=== PATIENT | male | born 1940 | race Caucasian/White ===

== ENCOUNTER 2016-03-07 13:20 | Emergency (ER) | payer MEDICARE, OTHER ==
[2013-11-16 13:13] VITALS: BMI 25.6
[~2016-03-07 13:20] MED LIST: ACETAMINOPHEN500 M1 PO; BAYER CHEWABLE81 MG PO; FEXOFENADINE H180 MG PO; HYTRIN1 MG PO; LEVAQUIN250 MG PO; NIASPAN500 MG PO; POTASSIUM CITRA5 MEQ PO; PRILOSEC20 MG PO; WELCHOL3.75 GM PO
[2016-03-07 14:57] LABS: BASOPHILS 0.1 % (0.0-2.0); EOSINOPHILS 0 % (0-7); HEMATOCRIT 41.8 % (42.0-54.0); HEMOGLOBIN 13.9 g/dL (13.5-17.5); IMMATURE GRANULOCYTES 0.1 % (0-5); LYMPHOCYTES 12.1 % (15-50); MCH 30.8 pg (26.0-34.0); MCHC 33.3 g/dL (31.0-37.0); MCV 92.7 fL (80.0-100.0); MEAN PLATELET VOLUME 10.4 fL (7.4-10.4); MONOCYTES 2.3 % (2-11); NEUTROPHILS 85.4 % (40-80); PLATELET COUNT 153 10x3/uL (130-400); RBC 4.51 10x6/uL (4.20-6.10); RDW 12.7 % (11.5-14.5)
[2016-03-07 15:09] LABS: ANION GAP 12.7 mmol/L (8-16); BILIRUBIN - TOTAL 0.77 mg/dL (0.2-1.3); CALCIUM 9.8 mg/dL (8.5-10.1); CARBON DIOXIDE 25.9 mmol/L (21.0-32.0); CREATININE - SERUM 2.1 mg/dL (0.6-1.3); POTASSIUM - SERUM 4.6 mmol/L (3.5-5.1); PROTEIN - SERUM 9.1 g/dL (6.4-8.2)
[2016-03-07 15:13] LABS: APPEARANCE CLEAR (CLEAR); BILIRUBIN NEGATIVE (NEGATIVE); COLOR YELLOW (YELLOW); GLUCOSE NEGATIVE (NEGATIVE); KETONE NEGATIVE (NEGATIVE); LEUKOCYTE ESTERASE NEGATIVE (NEGATIVE); NITRITE NEGATIVE (NEGATIVE); PROTEIN TRACE mg/dL (NEGATIVE); UROBILINOGEN NORMAL (NORMAL)
[2016-03-07 15:19] LABS: BACTERIA FEW /hpf (NONE SEEN); EPITHELIAL CELLS 0-5 /hpf (0-5); WHITE CELLS - URINE 0-5 /hpf (0-5)
== END 2016-03-07 18:50 | disposition home or self-care (01) ==
LOC: D.ER 13:20
PROVIDERS: Emergency Medicine
DX: K52.9 Noninfective gastroenteritis and colitis, unspecified (principal); K21.9 Gastro-esophageal reflux disease without esophagitis; N28.9 Disorder of kidney and ureter, unspecified; F17.200 Nicotine dependence, unspecified, uncomplicated

== ENCOUNTER 2016-03-10 16:58 | Inpatient (IN) | payer MEDICARE, OTHER ==
[~2016-03-10] VITALS: Ht 177.8 cm; Wt 78.6 kg
--- NOTE | 2016-03-10 17:38 | NUR ---
ARRIVE TO ROOM VIA WHEELCHAIR FROM DOCTOR'S OFFICE ACCOMPANIED BY HOSPITAL STAFF AND SPOUSE. ALERT AND ORIENTED WITH SOME CONFUSION. MAX ASSIST TO BED FROM WHEELCHAIR. SHAKING AND COLD. TEMP 101.6. DENIES SOB. DENIES PAIN. CONTINUE ADMISSION PROCESS. SCDs ON. BED LOCKED AND LOW. CALL LIGHT IN REACH. TWO SIDERAILS UP.
[2016-03-10 17:42] VITALS: BP 141/70
[2016-03-10 18:30] VITALS: BP 141/70; BMI 25.6
--- NOTE | 2016-03-10 18:41 | NUR ---
UA COLLECTED TAKEN TO LAB. IV SITED LT FA SL. BED LOCKED AND LOW. CALL LIGHT IN REACH. TWO SIDERAILS UP. BED ALARM ON.
[2016-03-10 18:45] LABS: BASOPHILS 0.1 % (0.0-2.0); EOSINOPHILS 0 % (0-7); HEMATOCRIT 40.1 % (42.0-54.0); HEMOGLOBIN 13.5 g/dL (13.5-17.5); IMMATURE GRANULOCYTES 0.1 % (0-5); LYMPHOCYTES 13.2 % (15-50); MCH 31.2 pg (26.0-34.0); MCHC 33.7 g/dL (31.0-37.0); MCV 92.6 fL (80.0-100.0); MEAN PLATELET VOLUME 10.9 fL (7.4-10.4); MONOCYTES 10.1 % (2-11); NEUTROPHILS 76.5 % (40-80); PLATELET COUNT 142 10x3/uL (130-400); RBC 4.33 10x6/uL (4.20-6.10); RDW 12.5 % (11.5-14.5); WBC 6.9 10x3/uL (4.8-10.8)
[2016-03-10 19:08] LABS: ALBUMIN 3.7 g/dL (3.4-5.0); BILIRUBIN - TOTAL 1.07 mg/dL (0.2-1.3); CARBON DIOXIDE 26.2 mmol/L (21.0-32.0); CREATININE - SERUM 1.8 mg/dL (0.6-1.3); POTASSIUM - SERUM 4.2 mmol/L (3.5-5.1); PROTEIN - SERUM 8.2 g/dL (6.4-8.2)
--- NOTE | 2016-03-10 19:15 | NUR ---
RECEIVED REPORT, LFA-NS @ 60, REFUSING SCD AT THIS TIME, BED IS LOW, SRX2, CALL LIGHT IN REACH, FAMILY AT BEDSIDE, WILL CONTINUE TO MONITOR
[2016-03-10 19:43] LABS: APPEARANCE CLEAR (CLEAR); BILIRUBIN NEGATIVE (NEGATIVE); COLOR YELLOW (YELLOW); GLUCOSE NEGATIVE (NEGATIVE); KETONE NEGATIVE (NEGATIVE); LEUKOCYTE ESTERASE NEGATIVE (NEGATIVE); NITRITE NEGATIVE (NEGATIVE); PROTEIN NEGATIVE (NEGATIVE); SPECIFIC GRAVITY 1.015 (1.005-1.020); UROBILINOGEN NORMAL (NORMAL)
[2016-03-10 20:26] VITALS: BP 153/77
[2016-03-11 00:38] VITALS: BP 136/77
--- NOTE | 2016-03-11 03:53 | NUR ---
GOLD CHARMER AT BEDSIDE TO OBTAIN VITALS, CALL LIGHT IN REACH. WILL CONTINUE WITH PLAN OF CARE.
[2016-03-11 04:40] VITALS: BP 119/57
--- NOTE | 2016-03-11 05:02 | NUR ---
SLEEPING, CALL LIGHT IN REACH, BED IS LOW, AT BEDSIDE
[2016-03-11 06:40] LABS: ANION GAP 12.8 mmol/L (8-16); CALCIUM 8.8 mg/dL (8.5-10.1); CARBON DIOXIDE 24.2 mmol/L (21.0-32.0); CREATININE - SERUM 1.7 mg/dL (0.6-1.3)
--- NOTE | 2016-03-11 07:20 | NUR ---
RECIEVED REPORT ON PATIENT, PATIENT IS ALERT AND ORIENTED AT THIS TIME. PATIENT HAS A L FA IV WITH NS INFUSING AT 60ML/HR. PATIENT IS ON ROOM AIR AT THIS TIME WITH NAD NOTED. CHEST RISES AND FALLS EQUALLY. PATIENT DENIES ANY NEEDS OR PAIN AT THIS TIME. WILL CONT TO MONITOR. CPOC
[2016-03-11 08:00] VITALS: BP 141/66
--- NOTE | 2016-03-11 10:00 | NUR ---
ASSESSMENT DONE. PATIENT DENIES ANY NEEDS OR COMPLAINTS. AT BEDSIDE. CPOC
[2016-03-11 12:00] VITALS: BP 130/63
[2016-03-11 12:55] VITALS: Ht 177.8 cm; Wt 78.6 kg
--- NOTE | 2016-03-11 13:30 | NUR ---
PATIENT WORKING WITH PHYSICAL THERAPY. CPOC
[2016-03-11 16:00] VITALS: BP 138/68
--- NOTE | 2016-03-11 16:00 | NUR ---
PATIENT SLEEPING AT THIS TIME, NAD NOTED. CHEST RISES AND FALLS EQUALLY. PATIENT AT BEDSIDE. DENIES ANY NEEDS. CPOC
--- NOTE | 2016-03-11 16:23 | EC ---
PATIENT:JOSE GATICA DATE OF SERVICE: 03/10/16 SEX: M MEDICAL RECORD: [id number] DATE OF : 42 LOCATION:D.M2 D.210 AGE OF PATIENT: 75 ADMISSION DATE: 03/10/16 REFERRING PHYSICIAN: INTERPRETING PHYSICIAN: ANAM LAROSE MD ECHOCARDIOGRAM REPORT ECHO CHARGES 4 ECHO COMPLETE CLINICAL DIAGNOSIS: DYSPNEA/FEVER ECHOCARDIOGRAPHIC MEASUREMENTS (adult normal given) AC root (d.<3.7cm) 3.9 LV Septum d (<1.2 cm> 1.3 Valve Excursion 2.0 LV Septum (systole) 1.4 Left Atria (s.<4.0cm> 3.9 LVPW d(<1.2cm) 1.3 RV (d.<2.3cm) 4.1 LVPW (sytole) 2.1 LV diastole(<5.6CM) 4.9 MV E-F(>70mm/sec) LV systole 3.9 LVOT Diameter 1.7 MV exc.(>10mm) Est.ejection fraction (50-75%) Pericardial Effusion N DOPPLER: LVIT A 59.0 E 66.0 LA RVSP 29 LVOT 65 AOP1/2T Asc. Ao 113 RVOT 66 RA PA 67 AV Gradient Peak 5.09 AV Mean 2.5 AV Area 1.5 MV Gradient Peak 1.77 MV Mean 0.70 MV Area COMMENTS: Custom Clothier: Wilmer [facility] Director:Wilmer Hebert TAPE# PACS DATE OF SERVICE: 03/11/2016 Echocardiogram FINDINGS: 1. Left ventricular chamber size is within normal limits. Left ventricular systolic function is normal. Overall ejection fraction estimated at 55%. 2. Left atrium is upper limits of normal at 3.9 cm. Right atrium and right ventricular chamber sizes are as well upper limits of normal. 3. Valvular structures have normal structure and motion. ECHOCARDIOGRAM REPORT [id number] JOSE GATICA 4. Doppler interrogation reveals mild mitral regurgitation, mild tricuspid regurgitation, no other valvular insufficiency or stenosis. Pulmonary systolic pressure is normal estimated at 29 mmHg. 5. No evidence of pericardial effusion or left ventricular thrombus. TRANSINT:[id number] Voice Confirmation ID: [id number] DOCUMENT ID: [id number] ANAM LAROSE MD at 1623 CC: PRISCILA HECK MD [id number] DICTATION DATE: 03/11/16 1317 BIOTECHNICIAN: 03/11/16 1341 ADM IN [facility] [address] [id number]
--- NOTE | 2016-03-11 17:59 | NUR ---
PATIENT EATING DINNER AT THIS TIME, HAS ATE 10% AND DENIES THE REST, LEFT TRAY FOR PATIENT TO EAT ON LATER. DENIES ANY OTHER NEEDS. CPOC
--- NOTE | 2016-03-11 19:20 | NUR ---
RECEIVED REPORT, [id number], FAMILY AT BEDSIDE, DENIES ANY NEEDS AT THIS TIME, CALL LIGHT IN REACH, BED IS LOW, SRX2
[2016-03-11 19:51] VITALS: BP 124/64
[2016-03-12] VITALS: BP 108/61
--- NOTE | 2016-03-12 03:16 | NUR ---
SLEEPING, CALL LIGHT IN REACH, AT BEDSIDE,
[2016-03-12 05:21] LABS: BASOPHILS 0.2 % (0.0-2.0); EOSINOPHILS 0.4 % (0-7); HEMATOCRIT 36.9 % (42.0-54.0); HEMOGLOBIN 12.7 g/dL (13.5-17.5); IMMATURE GRANULOCYTES 0.2 % (0-5); LYMPHOCYTES 24.5 % (15-50); MCH 30.9 pg (26.0-34.0); MCHC 34.4 g/dL (31.0-37.0); MEAN PLATELET VOLUME 10.3 fL (7.4-10.4); MONOCYTES 15.5 % (2-11); NEUTROPHILS 59.2 % (40-80); PLATELET COUNT 120 10x3/uL (130-400); RBC 4.11 10x6/uL (4.20-6.10); RDW 12.5 % (11.5-14.5); WBC 5.4 10x3/uL (4.8-10.8)
[2016-03-12 05:24] LABS: MCV 89.8 fL (80.0-100.0)
--- NOTE | 2016-03-12 05:30 | NUR ---
CALL LIGHT IN REACH. WILL CONTINUE WITH PLAN OF CARE.
[2016-03-12 05:31] LABS: ANION GAP 12.3 mmol/L (8-16); CALCIUM 8.8 mg/dL (8.5-10.1); CARBON DIOXIDE 23.6 mmol/L (21.0-32.0); CREATININE - SERUM 1.8 mg/dL (0.6-1.3); POTASSIUM - SERUM 3.9 mmol/L (3.5-5.1)
--- NOTE | 2016-03-12 07:54 | NUR ---
ASSESSMENT COMPLETED. PT IS ALERT, NO CONFUSION AT PRESENT TIME. FAMILY AT BED SIDE. IV TO LEFT FA. PT IS BILL [employer] [place]. WILL MONITOR
[2016-03-12 09:01] VITALS: BP 125/81
--- NOTE | 2016-03-12 10:56 | NUR ---
resting QUIETLY. VISITING WITH FAMILY. WILL CONTINUE TO MONITOR
--- NOTE | 2016-03-12 11:49 | NUR ---
Is the patient Alert and Oriented? Yes 0 * How many steps to enter\exit or inside your home? 3 0 * PCP DR. HECK 0 * Pharmacy [facility] 0 * Preadmission Environment Home with Family 0 * ADLs Independent 0 * Equipment None 0 * List name and contact numbers for known caregivers / representatives who currently or will assist patient after discharge: SPOUSE: RITCHIE GATICA [phone] 0 * Community resources currently utilized None 0 * Additional services required to return to the preadmission environment? No 0 * Can the patient safely return to the preadmission environment? Yes 0 * Has this patient been hospitalized within the prior 30 days at any hospital? No SPOKE WITH PATIENT AND HIS AT BEDSIDE. HE LIVES AT HOME WITH HIS AND IS INDEPENDENT IN HIS ADL'S. SHE WILL BE AVAILABLE TO DRIVE HIM HOME AT DISCHARE. PATIENT'S PCP IS DR. HECK. HE GETS HIS MEDS FROM [facility]. PATIENT DENIES EVER HAVING HOME HEALTH. HE DOES NOT USE ANY EQUIPMENT. THERE ARE 3 STEPS TO ENTER HIS HOME. PATIENT AND STATE PATIENT PLANS TO RETURN HOME AND DENY ANY DISCHARGE NEEDS.
[2016-03-12 13:09] VITALS: BP 122/65
--- NOTE | 2016-03-12 16:06 | NUR ---
AMBULATING IN [address]. GAIT STEADY. WILL MONITOR
[2016-03-12 16:43] VITALS: BP 139/70
--- NOTE | 2016-03-12 19:15 | NUR ---
RECEIVED REPORT, KLAUDIA DIXON-MAGAN@ 60, AT BEDSIDE, CALL LIGHT IN REACH, BED IS LOW, DENIES ANY NEEDS
[2016-03-12 21:00] VITALS: BP 124/71
[2016-03-13 00:42] VITALS: BP 114/58
--- NOTE | 2016-03-13 04:45 | NUR ---
UP TO RESTROOM, DENIES ANY NEEDS
--- NOTE | 2016-03-13 04:58 | NUR ---
PT RESTING WITHOUT C/O OR DISTRESS NOTED. CALL LIGHT WITHIN REACH. WILL CONT TO MONITOR.
[2016-03-13 06:56] LABS: BASOPHILS 0.3 % (0.0-2.0); EOSINOPHILS 0.9 % (0-7); HEMOGLOBIN 13.2 g/dL (13.5-17.5); IMMATURE GRANULOCYTES 0.2 % (0-5); LYMPHOCYTES 32.4 % (15-50); MCH 30.7 pg (26.0-34.0); MCHC 33.8 g/dL (31.0-37.0); MCV 90.7 fL (80.0-100.0); MEAN PLATELET VOLUME 10.5 fL (7.4-10.4); MONOCYTES 14.3 % (2-11); NEUTROPHILS 51.9 % (40-80); RDW 12.6 % (11.5-14.5); WBC 5.9 10x3/uL (4.8-10.8)
[2016-03-13 06:58] LABS: PLATELET COUNT 153 10x3/uL (130-400)
[2016-03-13 07:12] LABS: CALCIUM 8.2 mg/dL (8.5-10.1); CARBON DIOXIDE 23.7 mmol/L (21.0-32.0); CREATININE - SERUM 1.9 mg/dL (0.6-1.3); POTASSIUM - SERUM 3.7 mmol/L (3.5-5.1)
[2016-03-13 07:18] VITALS: BP 114/61
[2016-03-13 07:26] VITALS: BP 114/61
--- NOTE | 2016-03-13 07:45 | NUR ---
PT AWAKE AND ALERT AT BEDSIDE NO ACUTE DISTRESS NOTED VOICES ALL NEEDS TO STAFF CALL LIGHT IN REACH SIDE RAILS UP X 2. UP AD TJ IN ROOM AND AMBULATES WITH A WEAK BUT STEADY GAIT. DENEIS NEEDS AT THIS TIME WILL CONTINUE TO MONITOR.
--- NOTE | 2016-03-13 10:00 | NUR ---
PT RESTING QUIETLY IN ROOM TOOK ALL AM MEDS WITH NO DIFFICULTY NOTED MOBILE PER AMBULATION IN ROM WITH NO ASSIST NEEDED.
[2016-03-13] MEDS ORDERED: PHENAZOPYRIDIN100 MG PO ×2 (11:23→12:40)
[2016-03-13] MEDS ORDERED: VIBRAMYCIN 100100 MG PO ×2 (11:24→12:40)
[2016-03-13] MEDS ORDERED: LEVAQUIN500 MG PO ×2 (11:25→12:40)
[2016-03-13 11:30] VITALS: BP 122/62
--- NOTE | 2016-03-13 13:03 | NUR ---
PT DISCHARGED AT THIS TIME MEDS CALLED TO [facility] ON [address] SPOKE WITH RONNIE PHARMICIST. IV D/C TO LEFT AC TIP IN TACT NO BLEEDING NOTED TRANSPORTED VIA WHEELCHAIR TO [facility] FOR DISCHARGE HOME WITH AND SON
[2016-03-16 12:17] LABS: RMSF IGM 0.27 index (0.00-0.89)
[2016-03-16 14:20] LABS: EHRLICHIA CHAFF IGG Negative (Neg:<1:64); EHRLICHIA CHAFF IGM Negative (Neg:<1:20); HGE IGG TITER Negative (Neg:<1:64); HGE IGM TITER Negative (Neg:<1:20)
--- NOTE | 2016-03-21 15:55 | HP ---
PATIENT: JOSE GATICA MEDICAL RECORD: [id number] ACCOUNT: [id number] LOCATION:[address] : 42 ADMISSION DATE: 03/10/16 HISTORY AND PHYSICAL EXAMINATION HISTORY OF PRESENT ILLNESS: A 75-year-old white male presented to the clinic upon day of admission with complaint of not feeling well and headache. The patient was in his usual state of health; whenever approximately 4-5 days ago, he started having a type of symptoms that is like gastric upset and stomach abdominal weakness. The patient had several episodes of emesis. He was taken to the local ER, evaluation was done and the patient was found to have gastroenteritis, was given a prescription of Zofran and was discharged home. Patient since that time has had increased in loss of balance. He has had grimacing and gritting of his teeth, stating that he just does not feel well. He has had multiple rigors. No documented temperature. The patient has had decreased p.o. intake, increasing urine output. He has had very little urine stream over the last 24 hours, complained that his bladder stings when he urinates and a burning sensation. Patient is unable to give a urine sample in the clinic today. PAST MEDICAL HISTORY: Significant for BPH, dementia, hyperlipidemia, GERD, renal stones, chronic renal insufficiency, goiter, chronic pharyngitis, dysphonia, hearing loss and osteoarthritis. The patient is followed by filtering machine tender, Dr. Monroe. ALLERGIES: LOPID. PAST SURGICAL HISTORY: The patient has had a cholecystectomy and has also had a tonsillar stone removed out of his throat in the past. SOCIAL HISTORY: Patient does not smoke and does not drink alcohol. MEDICATIONS: Include terazosin 2 mg, allopurinol 100 mg, Farwell p.r.n., Colace 100 mg, Nexium 20 mg, Leti 180 mg, niacin and multivitamins. REVIEW OF SYSTEMS: As above. PHYSICAL EXAMINATION: VITAL SIGNS: As above. GENERAL: He is a well-developed, well-nourished elderly, ill-appearing 75-year-old white male in a wheelchair with a difficult balance. He is gritting his teeth, stating that it is secondary to his chattering of his teeth. HEENT: His pupils are sluggish, but do react to light. Extraocular movements are intact. NECK: No nuchal rigidity is noted. LUNGS: Have shallow respirations, but clear bilaterally. HEART: Regular rate and rhythm, no significant tachycardia. ABDOMEN: Soft, nontender, positive bowel sounds. No hepatosplenomegaly. No masses, no evidence of rashes. EXTREMITIES: He has cool extremities on his hands, has palpable radial pulses bilaterally. NEUROLOGIC: Able to move all 4 extremities. LABORATORY DATA: CBC was obtained in the clinic. HISTORY AND PHYSICAL [id number] JOSE GATICA ASSESSMENT: 1. Early sepsis. 2. Prostatitis versus urinary tract infection. 3. Chronic renal insufficiency. 4. Dementia. 5. Falls and loss of balance. 6. Possible metabolic encephalopathy. PLAN: The patient will be admitted to the hospital for hydration for the next [address] of the head to be obtained. We will start him on Rocephin IM times 1 in the clinic and then start him on Levaquin 500 mg IV. We will check laboratory appropriately. We will write admission orders and patient will be admitted to the hospital. TRANSINT:[id number] Voice Confirmation ID: [id number] DOCUMENT ID: [id number] PRISCILA HECK MD at 1555 CC: [id number] DICTATION DATE: 03/10/162037 FILM DEVELOPER: 03/10/16 2259 DIS IN 03/13/[id number] [place] [address]
== END 2016-03-13 13:04 | disposition home or self-care (01) | DRG 871 ==
LOC: D.M2 16:58
PROVIDERS: Family Medicine Adult Medicine; Student in an Organized Health Care Education/Training Program; ADMIT Family Medicine
DX: A41.9 Sepsis, unspecified organism (principal); G93.41 Metabolic encephalopathy; N41.0 Acute prostatitis; E87.1 Hypo-osmolality and hyponatremia; N40.0 Benign prostatic hyperplasia without lower urinary tract symptoms; F03.90 Unspecified dementia, unspecified severity, without behavioral disturbance, psychotic disturbance, mood disturbance, and anxiety; E78.5 Hyperlipidemia, unspecified; K21.9 Gastro-esophageal reflux disease without esophagitis; N18.9 Chronic kidney disease, unspecified; R51 Headache; M19.90 Unspecified osteoarthritis, unspecified site; H91.90 Unspecified hearing loss, unspecified ear; Z91.81 History of falling

== ENCOUNTER 2016-03-19 10:27 | Inpatient (IN) | payer MEDICARE, OTHER ==
[~2016-03-19] VITALS: Ht 177.8 cm; Wt 77.6 kg
[~2016-03-19 10:27] MED LIST changes: +LEVAQUIN500 MG PO; +PHENAZOPYRIDIN100 MG PO; +VIBRAMYCIN 100100 MG PO
[2016-03-19 11:00] LABS: BASOPHILS 0.1 % (0.0-2.0); EOSINOPHILS 0.9 % (0-7); HEMATOCRIT 42.4 % (42.0-54.0); IMMATURE GRANULOCYTES 0.1 % (0-5); LYMPHOCYTES 22.7 % (15-50); MCH 30.5 pg (26.0-34.0); MCV 92.4 fL (80.0-100.0); MEAN PLATELET VOLUME 10.2 fL (7.4-10.4); MONOCYTES 9.6 % (2-11); NEUTROPHILS 66.6 % (40-80); RBC 4.59 10x6/uL (4.20-6.10); RDW 12.5 % (11.5-14.5); WBC 6.8 10x3/uL (4.8-10.8)
[2016-03-19 11:01] LABS: PLATELET COUNT 197 10x3/uL (130-400)
[2016-03-19 11:15] LABS: APTT 26.9 SECONDS (22.8-39.4); INR 1.09 (0.85-1.17)
[2016-03-19 11:24] LABS: ALBUMIN 3.6 g/dL (3.4-5.0); ALKALINE PHOSPHATASE 94 U/L (46-116); ALT (SGPT) 35 U/L (10-68); CALC OSMOLALITY 281 mosm/kg (275-300); CALCIUM 9.9 mg/dL (8.5-10.1); CARBON DIOXIDE 26.6 mmol/L (21.0-32.0); CHLORIDE - SERUM 102 mmol/L (98-107); CREATININE - SERUM 2.3 mg/dL (0.6-1.3); GLUCOSE 105 mg/dL (74-106); POTASSIUM - SERUM 4.6 mmol/L (3.5-5.1); PROTEIN - SERUM 8.7 g/dL (6.4-8.2); SODIUM 138 mmol/L (136-145); UREA NITROGEN 28 mg/dL (7-18); eGFR NON AFRICAN AMERICAN 30 mL/min (90-120)
[2016-03-19 11:27] LABS: CREATINE KINASE 70 UL (21-232)
[2016-03-19 11:30] LABS: TROPONIN-I < 0.017 ng/mL (0.000-0.060)
[2016-03-19 11:41] LABS: APPEARANCE CLEAR (CLEAR); COLOR ORANGE (YELLOW); SPECIFIC GRAVITY 1.015 (1.005-1.020)
[2016-03-19 11:43] LABS: BACTERIA FEW /hpf (NONE SEEN); EPITHELIAL CELLS 0-5 /hpf (0-5); HYALINE CAST 0-5 /lpf (NONE SEEN); MUCUS <1+ /lpf (NONE SEEN); RED CELLS - URINE 0-5 /hpf (0-5); WHITE CELLS - URINE 0-5 /hpf (0-5)
[2016-03-19 18:06] LABS: APPEARANCE - CSF CLEAR; RBC - CSF 10 cmm (0-0)
[2016-03-19 18:09] LABS: GLUCOSE - CSF 63 MG/DL (40-75); PROTEIN - CSF 59 MG/DL (12-60)
[2016-03-19 20:00] VITALS: BP 129/70
[2016-03-20] VITALS (8 sets, daily range): BP systolic 104–129; BP diastolic 58–71; Ht 177.8 cm; Wt 77.6 kg
[2016-03-20] MEDS ORDERED: ZYLOPRIM100 MG PO (02:21)
[2016-03-20] MEDS ORDERED: NORCO 7.5/325 T1 TA1 PO (02:23)
[2016-03-20] MEDS ORDERED: COLACE100 MG PO (02:23)
[2016-03-20] MEDS ORDERED: NEXIUM20 MG PO (02:24)
[2016-03-20] MEDS ORDERED: MULTIPLE VITAMI1 TA1 PO (02:25)
[2016-03-20 05:40] LABS: BASOPHILS 0.2 % (0.0-2.0); EOSINOPHILS 1.1 % (0-7); HEMOGLOBIN 12.3 g/dL (13.5-17.5); IMMATURE GRANULOCYTES 0.2 % (0-5); LYMPHOCYTES 32.2 % (15-50); MCH 29.9 pg (26.0-34.0); MCHC 32.4 g/dL (31.0-37.0); MCV 92.5 fL (80.0-100.0); MEAN PLATELET VOLUME 9.9 fL (7.4-10.4); MONOCYTES 9.2 % (2-11); NEUTROPHILS 57.1 % (40-80); PLATELET COUNT 192 10x3/uL (130-400); RBC 4.11 10x6/uL (4.20-6.10); RDW 12.5 % (11.5-14.5); WBC 6.6 10x3/uL (4.8-10.8)
[2016-03-20 05:51] LABS: ANION GAP 9.5 mmol/L (8-16); CALCIUM 8.8 mg/dL (8.5-10.1); CARBON DIOXIDE 29.9 mmol/L (21.0-32.0); CREATININE - SERUM 2.1 mg/dL (0.6-1.3); POTASSIUM - SERUM 4.4 mmol/L (3.5-5.1)
--- NOTE | 2016-03-20 07:00 | NUR ---
REPORT RECIEVED ASSUMED CARE. PATIENT IN BED WITH IV INTACT. NO COMPLAINTS. CALL LIGHT WITHIN REACH. REFUSES BSCDS. FAMILY AT BEDSIDE.
[2016-03-20] MEDS ORDERED: BIOFLEX TABLET1 EACH PO (07:51)
--- NOTE | 2016-03-20 10:30 | NUR ---
PATIENT UP AMBULATING WITH FAMILY AT THIS TIME. IV INTACT. NO PROBLEMS CALL LIGHT WITHIN REACH.
--- NOTE | 2016-03-20 17:25 | NUR ---
PATIENT UP AMBULATING WITH FAMILY AT THIS TIME.
--- NOTE | 2016-03-20 18:45 | NUR ---
PATIENT SITTING UP IN BED WITH NO COMPLAINTS AT THIS TIME. IV INTACT. CALL LIGHT WITHIN REACH.
[2016-03-21 04:00] VITALS: BP 105/63
[2016-03-21 05:53] LABS: BASOPHILS 0.1 % (0.0-2.0); EOSINOPHILS 2.1 % (0-7); HEMATOCRIT 40.1 % (42.0-54.0); HEMOGLOBIN 12.9 g/dL (13.5-17.5); IMMATURE GRANULOCYTES 0.1 % (0-5); LYMPHOCYTES 26.7 % (15-50); MCH 29.8 pg (26.0-34.0); MCHC 32.2 g/dL (31.0-37.0); MCV 92.6 fL (80.0-100.0); MEAN PLATELET VOLUME 10.5 fL (7.4-10.4); MONOCYTES 8.4 % (2-11); NEUTROPHILS 62.6 % (40-80); PLATELET COUNT 206 10x3/uL (130-400); RBC 4.33 10x6/uL (4.20-6.10); RDW 12.6 % (11.5-14.5); WBC 7.2 10x3/uL (4.8-10.8)
[2016-03-21 06:13] LABS: ANION GAP 12.9 mmol/L (8-16); CALCIUM 9.2 mg/dL (8.5-10.1); CARBON DIOXIDE 27.8 mmol/L (21.0-32.0); CREATININE - SERUM 2.4 mg/dL (0.6-1.3); POTASSIUM - SERUM 4.7 mmol/L (3.5-5.1)
--- NOTE | 2016-03-21 07:00 | NUR ---
REPORT RECIEVED ASSUMED CARE. PATIENT IN BED WITH IV INTACT. NO COMPLAINTS. CALL LIGHTW ITHIN REACH.
[2016-03-21 09:04] VITALS: BP 109/64
[2016-03-21 13:01] VITALS: BP 103/69
--- NOTE | 2016-03-21 16:30 | NUR ---
PATIENT AMBULATED AROUND HALLS X 2 WITH FAMILY.
[2016-03-21 18:10] VITALS: BP 111/63
--- NOTE | 2016-03-21 18:18 | NUR ---
PATIENT SITTING UP IN BED WITH FAMILY AT BEDSIDE. IV INTACT AND INFUSING ANTIBIOTIC. NO COMPLAINTS. REFUSES BSCDS. CALL LIGHT WITHIN REACH.
--- NOTE | 2016-03-21 20:20 | NUR ---
PATIENT AMBULATING IN HALLS WITH . NO SIGNS OF DISTRESS NOTED. DENIES ANY NEEDS AT THIS TIME.
[2016-03-21 21:00] VITALS: BP 123/69
[2016-03-22 02:00] VITALS: BP 104/57
--- NOTE | 2016-03-22 02:30 | NUR ---
PT IN BED WITH NO NEEDS. LEFT WRIST PATENT AND SALINE LOC. TELEMETRY ON. REFUSING SCD'S AT THIS TIME. SIDE RAILS ARE UP X 2. BED IS LOW. CALL LIGHT IS IN REACH.
[2016-03-22 04:57] LABS: BASOPHILS 0.2 % (0.0-2.0); EOSINOPHILS 2.4 % (0-7); HEMATOCRIT 37.9 % (42.0-54.0); HEMOGLOBIN 12.5 g/dL (13.5-17.5); IMMATURE GRANULOCYTES 0.2 % (0-5); LYMPHOCYTES 25.8 % (15-50); MCH 30.3 pg (26.0-34.0); MCV 91.8 fL (80.0-100.0); MEAN PLATELET VOLUME 9.9 fL (7.4-10.4); MONOCYTES 6.7 % (2-11); NEUTROPHILS 64.7 % (40-80); PLATELET COUNT 173 10x3/uL (130-400); RBC 4.13 10x6/uL (4.20-6.10); RDW 12.8 % (11.5-14.5); WBC 6.3 10x3/uL (4.8-10.8)
[2016-03-22 05:24] LABS: CALCIUM 8.9 mg/dL (8.5-10.1); CARBON DIOXIDE 26.2 mmol/L (21.0-32.0); POTASSIUM - SERUM 4.2 mmol/L (3.5-5.1)
[2016-03-22 08:30] VITALS: BP 92/61
--- NOTE | 2016-03-22 10:30 | NUR ---
Rehab Prescreening Consult recieved and the chart has been reviewed. He has ambulated 500 ft with PT and does not have that need. He still has a BSSE ordered and pending today. Rehab would like to see the results of that and determine the need for ST and OT. Rehab will follow. Falguni Ritchie RN Clinical Liaison, Rehab
--- NOTE | 2016-03-22 10:39 | NUR ---
Patient Name: JOSE GATICA Admission Status: ER Accout number: [id number] Admission Date: 03-19-2016 : 1940 Admission Diagnosis: Attending: KING Current LOS: 3 Anticipated DC Date: 03-24-2016 Planned Disposition: Home Primary Insurance: MEDICARE A & B Discharge Planning Comments: CM MET WITH PATIENT REGARDING D/C NEEDS AND PLANS. PATIENT STATED HIS (RITCHIE) WILL DRIVE HIM HOME AT DISCHARGE. PATIENT STATED THERE ARE 3 STEPS W/RAILS TO ENTER HOME AND 1 FLIGHT W/RAILS INSIDE (HE DOES NOT USE THES). PATIENTS PCP IS DR. HECK AND PHARMACY IS [facility]. PATIENT STATED HE DOES NOT NEED HOME HEALTH AT THIS TIME. PATIENT STATED HIS HELPS HIM AT HOME. CM WILL CONTINUE TO FOLLOW PATIENT WITH D/C NEEDS AND PLANS. PCP DR. HECK [facility]- [phone] RITCHIE () [phone] Spring Layer: Lyric Lobo Is the patient Alert and Oriented? Yes 0 * How many steps to enter\exit or inside your home? 3 RAILS 0 * PCP DR. HECK 0 * Pharmacy [facility] 0 * Preadmission Environment Home with Family 0 * ADLs Independent 0 * Equipment Shower Chair Walker 0 * List name and contact numbers for known caregivers / representatives who currently or will assist patient after discharge: RITCHIE (SPOUSE) [phone] 0 * Community resources currently utilized None 0 * Additional services required to return to the preadmission environment? Yes 0 * Can the patient safely return to the preadmission environment? Yes 0 * Has this patient been hospitalized within the prior 30 days at any hospital? Yes 0 Grand Total: 0
--- NOTE | 2016-03-22 12:10 | NUR ---
NUTRITION MONITORING & EVAL CHART REVIEWED. PT TOLERATING REG DIET, 100% INTAKE BREAKFAST. SPEECH THERAPY RESULTS NOTED. RD FOLLOWING
[2016-03-22 12:14] VITALS: BP 102/70
[2016-03-22] MEDS ORDERED: FLOMAX0.4 MG PO (14:36)
[2016-03-22] MEDS ORDERED: PLAVIX75 MG PO (14:36)
[2016-03-22] MEDS ORDERED: ROCEPHIN 1 GM/D51 G1 IV (14:36)
[2016-03-22] MEDS ORDERED: ASPIRIN325 MG PO (14:36)
[2016-03-22] MEDS ORDERED: LISINOPRIL5 MG PO (14:36)
[2016-03-22] MEDS ORDERED: PEPCID20 MG PO (14:37)
[2016-03-22] MEDS ORDERED: FLORAJEN3 CAPS460 MG PO (14:37)
[2016-03-22] MEDS ORDERED: PRAVACHOL20 MG PO (15:13)
[2016-03-22 16:12] LABS: CHOL - HDL RATIO 4.3 ratio (2.3-4.9); LDL-HDL RATIO 2.3 ratio (1.5-3.5)
[2016-03-22 16:54] VITALS: BP 110/62
--- NOTE | 2016-03-22 18:00 | NUR ---
REPORT CALLED TO [facility] ON REHAB. WILL TRANSFER TO REHAB PER WHEELCHAIR.
[2016-03-24 20:08] LABS: HSV 1 DNA (PCR) Negative (Negative); HSV 2 DNA (PCR) Negative (Negative)
== END 2016-03-22 18:23 | DRG 64 ==
LOC: D.ER 10:27 → D.MS 16:08
PROVIDERS: Emergency Medicine; Family Medicine; ADMIT Family Medicine
PROC: 009U3ZZ Drainage of Spinal Canal, Percutaneous Approach (ICD-10-PCS; principal; 2016-03-19)
DX: I63.9 Cerebral infarction, unspecified (principal); G93.40 Encephalopathy, unspecified; N18.9 Chronic kidney disease, unspecified; F03.90 Unspecified dementia, unspecified severity, without behavioral disturbance, psychotic disturbance, mood disturbance, and anxiety; M54.9 Dorsalgia, unspecified; G89.29 Other chronic pain; E78.5 Hyperlipidemia, unspecified; K21.9 Gastro-esophageal reflux disease without esophagitis; G47.33 Obstructive sleep apnea (adult) (pediatric); R40.2412 Glasgow coma scale score 13-15, at arrival to emergency department

== ENCOUNTER 2016-03-22 19:29 | Inpatient (IN) | payer MEDICARE, OTHER ==
[~2016-03-22] VITALS: Ht 177.8 cm; Wt 77.7 kg
[~2016-03-22 19:29] MED LIST changes: +ASPIRIN325 MG PO; +BIOFLEX TABLET1 EACH PO; +COLACE100 MG PO; +FLOMAX0.4 MG PO; +FLORAJEN3 CAPS460 MG PO; +LISINOPRIL5 MG PO; +MULTIPLE VITAMI1 TA1 PO; +NEXIUM20 MG PO; +NORCO 7.5/325 T1 TA1 PO; +PEPCID20 MG PO; +PLAVIX75 MG PO; +PRAVACHOL20 MG PO; +ROCEPHIN 1 GM/D51 G1 IV; +ZYLOPRIM100 MG PO
--- NOTE | 2016-03-22 19:30 | NUR ---
PT NOTED WALKING DOWN THE MARKS TOWARD THE NURSES STATION. PT VOICED THAT HE WAS VERY ANGRY BECAUSE HE HAD BEEN HERE SINCE 6 OCLOCK, AND NOBODY HAD EVEN BEEN IN THE ROOM TO SEE HIM YET, AND HE DIDNT FEEL HE WAS BEING TAKEN CARE OF PROPERLY. I INFORMED HIM THAT I WAS ON MY WAY DOWN RIGHT NOW, AND WE WENT BACK TO HIS ROOM. I EXPLAINED TO HIM THAT I WAS WAITING ON ADMISSIONS TO GET HIM INTO THE COMPUTER BEFORE I COULD OFFICIALLY ADMIT HIM TO REHAB, BUT THAT I WAS ACTIVELY WORKING ON IT. THIS HELPED HIM SOME, BUT HE WAS TEARING UP HE SPOKE TO ME. I INFORMED HIM THAT I HAD JUST TALKED TO HIS DAUGHTER, WHO INFORMED ME HOW ANGRY SHE WAS WITH US ALSO. HE ASKED ME TO CALL HIS FOR HIM. HIS ROOM PHONE WILL NOT CALL OUT SO I AGREED TO CALL HER FROM THE NURSES STATION AND TRANSFER IT TO HIS ROOM. I CALLED HIS , WHO ALSO INFORMED ME HOW ANGRY SHE WAS THAT HE WAS NOT BEING TAKEN CARE OF, AND THAT SHE WAS PROMISED A PRIVATE ROOM SO SHE COULD STAY WITH HIM, BUT WAS LIED TO ABOUT IT. I APOLOGISED FOR THE LACK OF A PRIVATE ROOM, AND OFFERED TO LET HER STAY IN HIS CURRENT ROOM, WHICH SHE DECLINED STATING HOW UNHAPPY SHE WAS WITH THE CHAIR IN HIS CURRENT ROOM. I OFFERED TO TRANSFER HER TO THE ROOM, BUT SHE STATED SHE HAD A INCOMING CALL, AND WOULD CALL HIM WHEN SHE WAS DONE WITH IT.
--- NOTE | 2016-03-22 20:40 | NUR ---
PT FULLY ADMITTED TO REHAB. PT ORIENTED TO ROOM AND UNIT WITH VERBAL UNDERSTANDING OF ALL VOICED. PT STATED HE DID NOT KNOW WHAT HIS PASSWORD IT, BUT THAT HIS WOULD BE IN FIRST THING IN THE MORNING TO GIVE IT TO US.
--- NOTE | 2016-03-22 21:48 | NUR ---
PT IS RESTING QUIETLY IN BED WITH EYES CLOSED. RESPS ARE EVEN AND UNLABORED. NO ACUTE DISTRESS NOTED.
[2016-03-22 23:02] VITALS: BP 134/82
--- NOTE | 2016-03-22 23:19 | NUR ---
PT. IN BED LYING ON HIS LEFT SIDE WITH EYES CLOSED AND RESP. EVEN. CALL LIGHT IS WITHIN REACH.
--- NOTE | 2016-03-23 01:30 | NUR ---
RESTING QUIETLY IN BED WITH EYES CLOSED. RESPS ARE EVEN AND UNLABORED. NO ACUTE DISTRESS NOTED.
--- NOTE | 2016-03-23 03:53 | NUR ---
PT RESTING IN BED WITH EYES CLOSED.
--- NOTE | 2016-03-23 06:23 | NUR ---
PT RESTIGN IN BED WITH EYES OPEN. ALERT AND ORIENTED X 3. DENIES ACUTE DISCOMFORT THIS AM. TOLERATED AM IV ABX WITHOUT DIFFICULTY. NO REDNESS OR EDEMA NOTED AT THE INSERTION SITE. PT AWAITING THERAPY EVALS THIS AM.
[2016-03-23 06:46] LABS: BASOPHILS 0.2 % (0.0-2.0); EOSINOPHILS 3.7 % (0-7); HEMATOCRIT 38.5 % (42.0-54.0); HEMOGLOBIN 12.5 g/dL (13.5-17.5); LYMPHOCYTES 29.4 % (15-50); MCH 29.9 pg (26.0-34.0); MCHC 32.5 g/dL (31.0-37.0); MCV 92.1 fL (80.0-100.0); MONOCYTES 10.3 % (2-11); NEUTROPHILS 56.4 % (40-80); PLATELET COUNT 167 10x3/uL (130-400); RBC 4.18 10x6/uL (4.20-6.10); RDW 12.9 % (11.5-14.5)
[2016-03-23 06:55] LABS: WBC 4.3 10x3/uL (4.8-10.8)
[2016-03-23 07:18] LABS: ANION GAP 12.4 mmol/L (8-16); CALCIUM 8.6 mg/dL (8.5-10.1); CREATININE - SERUM 1.8 mg/dL (0.6-1.3); POTASSIUM - SERUM 4.4 mmol/L (3.5-5.1)
[2016-03-23 08:36] VITALS: BP 104/54
[2016-03-23 12:45] VITALS: BMI 24.5
--- NOTE | 2016-03-23 12:50 | NUR ---
SITTING IN WHEELCHAIR IN GYM . NO NEEDS VOICED.
--- NOTE | 2016-03-23 13:28 | NUR ---
AMBULATING IN HALLWAY WITH CRISTINA THERAPIST. NO FALLS NOTED.
--- NOTE | 2016-03-23 15:33 | NUR ---
RESTING ON BACK IN BED WITHOUT ANY NEEDS VOICED.
--- NOTE | 2016-03-23 17:12 | NUR ---
SITTING ON SIDE OF THE BED WITHOUT ANY PAIN NOTED.
--- NOTE | 2016-03-23 19:15 | NUR ---
PT. IN BED LYING ON HIS RIGHT SIDE WITH EYES CLOSED AND RESP. EVEN. PT. AWAKENS EASILY FOR ASSESSMENT. PT. HAS NO VOICED NEEDS AT THIS TIME AND HE HAS HIS CALL LIGHT WITHIN REACH.
[2016-03-23 22:22] VITALS: BP 128/57
[2016-03-23 22:58] VITALS: BP 128/57; Ht 177.8 cm; Wt 77.7 kg
--- NOTE | 2016-03-24 02:00 | NUR ---
PT. IN BED WITH HOB FLAT FOR COMFORT. PT. LYING ON HIS LEFT SIDE WITH EYES CLOSED AND RESP. EVEN. CALL LIGHT WITHIN REACH.
--- NOTE | 2016-03-24 06:27 | NUR ---
PT. IN BED WITH HOB FLAT FOR HIS COMFORT WITH EYES CLOSED AND RESP. EVEN. PT. AWAKENED EASILY FOR MORNING MEDICATION. PT. HAS NO VOICED NEEDS AT THIS TIME AND HIS CALL LIGHT IS WITHIN REACH.
[2016-03-24 08:28] VITALS: BP 120/62
--- NOTE | 2016-03-24 09:43 | NUR ---
SITTING ON SIDE OF THE BED. ALERT AND IN THE ROOM. C/O BACK PAIN, PRN MED GIVEN.
--- NOTE | 2016-03-24 13:04 | NUR ---
RESTING IN BED WITHOUT ANY PAIN VOICED.
--- NOTE | 2016-03-24 15:43 | NUR ---
RESTING ON BACK IN BED WITH CALLIGHT IN REACH.
--- NOTE | 2016-03-24 16:44 | NUR ---
CARE TEAM MEETING: PATIENT TENATIVE DISCHARGE DATE IS 04/01/16, BUT PATIENT WOULD LIKE TO DISHCARGE AFTER LAST DOSE OF IV MEDICATION , WHICH WILL BE ON THE . WILL CONTINUE TO FOLLOW WITH PATIENT UNTIL DISCHARGED. PATIENT PCP IS DR. HECK.
--- NOTE | 2016-03-24 17:28 | NUR ---
SITTING ON SIDE OF THE BED WITH FAMILY IN THE ROOM.
--- NOTE | 2016-03-24 20:51 | NUR ---
RESTING IN BED. ALERT ORIENTED CONVERSANT. DENIES NEEDS. PT GOT SELF UP TO RESTROOM DURING MEDICATION ADMINISTRATION. NO DIFFICULTY AMBULATING OBSERVED. STAEDY GAIT NOTED
[2016-03-24 23:00] VITALS: BP 97/45
--- NOTE | 2016-03-25 01:19 | NUR ---
RESTING IN BED EYES CLOSED RESPIRATIONS OBSERVED. EVEN AND UNLABORED.
--- NOTE | 2016-03-25 02:25 | NUR ---
RESTING QUIETLY IN BED, EYES CLOSED.
--- NOTE | 2016-03-25 07:55 | NUR ---
PATIENT ALERT/ORIENT X4. HARD TO UNDERSTAND SPEECH. IV ANTIBIOTIC FINISHED. PATIENT DISCONNECTED FROM IV. CALL LIGHT WITHIN REACH. VOICES NO NEEDS
[2016-03-25 09:33] VITALS: BP 125/67
--- NOTE | 2016-03-25 11:32 | NUR ---
PATIENT WORKING WITH OCCUPATIONAL THERAPIST. PATIENT IN SHOWER. OT SET UP MATERIALS FOR SHOWER. PATIENT ABLE TO WASH SELF.
--- NOTE | 2016-03-25 12:22 | NUR ---
PATIENT SITTING UP IN WHEELCHAIR BY BED TO EAT LUNCH. IN ROOM VISITING.
--- NOTE | 2016-03-25 14:17 | NUR ---
PATIENT ABLE TO WALK FROM BED INTO BATHROOM WITH STANDBY ASST.
--- NOTE | 2016-03-25 16:25 | NUR ---
RESTING QUIETLY.CL IN REACH.DENIES NEEDS.
--- NOTE | 2016-03-25 17:37 | NUR ---
IV ANTIBIOTIC STATED IN LEFT FOREARM PHERIAL LINE.
[2016-03-25 19:00] VITALS: BP 119/66
--- NOTE | 2016-03-25 19:55 | NUR ---
PT REQ AND REC'D PRN PAIN MEDIACTION FOR 5/10 PAIN TO MID LOWER BACK. HS MEDS ALSO GIVEN AT THIS TIME. PT DENIES FURTHUR NEEDS. WCTM. BED LOW. CL IN REACH.
--- NOTE | 2016-03-25 21:55 | NUR ---
PT RESTING, EYES CLOSED. BED LOW. CL IN REACH. WCTM.
--- NOTE | 2016-03-26 04:14 | NUR ---
PT RESTING, EYES CLOSED. BED LOW. CL IN REACH. WCTM.
--- NOTE | 2016-03-26 08:00 | NUR ---
RESTING QUIETLY IN BED. NO S/S DISTRESS. CALL LIGHT IN REACH
[2016-03-26 08:02] LABS: BASOPHILS 0.2 % (0.0-2.0); EOSINOPHILS 3.1 % (0-7); HEMATOCRIT 37.6 % (42.0-54.0); HEMOGLOBIN 12.2 g/dL (13.5-17.5); LYMPHOCYTES 37.6 % (15-50); MCHC 32.4 g/dL (31.0-37.0); MCV 92.4 fL (80.0-100.0); MEAN PLATELET VOLUME 10.2 fL (7.4-10.4); MONOCYTES 10.6 % (2-11); NEUTROPHILS 48.5 % (40-80); PLATELET COUNT 169 10x3/uL (130-400); RBC 4.07 10x6/uL (4.20-6.10); WBC 4.2 10x3/uL (4.8-10.8)
[2016-03-26 08:08] LABS: ANION GAP 12.9 mmol/L (8-16); CALCIUM 8.6 mg/dL (8.5-10.1); CARBON DIOXIDE 25.9 mmol/L (21.0-32.0); CREATININE - SERUM 1.9 mg/dL (0.6-1.3); POTASSIUM - SERUM 4.8 mmol/L (3.5-5.1)
[2016-03-26 10:27] VITALS: BP 130/65
--- NOTE | 2016-03-26 10:42 | NUR ---
Nutrition Follow Up: Chart reviewed. Diet: Regular PO Intake: 58% (3 meal avg) +BM 03/25/16 No new wt to assess Meds: MV Labs noted - BUN, Cr elevated Pt with fair po intake at this time. Will send Ensure with meals. RD following.
--- NOTE | 2016-03-26 11:40 | NUR ---
SITTING UP TALKING TO . DENIES PAIN OR NEEDS. SPEECH MORE CLEAR AND UNDERSTANDABLE.
--- NOTE | 2016-03-26 15:49 | NUR ---
LAYING ON BED WATCHING TV. DENIES NEEDS. GONE HOME FOR HTE NIGHT
[2016-03-26 19:25] VITALS: BP 110/51
--- NOTE | 2016-03-26 19:45 | NUR ---
PT IS RESTING IN HIS ROOM VISITING WITH A FAMILY MEMBER. ALERT AND ORIENTED X 3. DENIES ANY PAIN OR DISCOMFORT. PT STATES HE IS PLANNING FOR DISCHARGE AFTER HIS IV ANTIBIOTICS ARE FINISHED. SALINE LOCK IS PATENT TO [facility]. NO REDNESS OR EDEMA NOTED AT THE INSERTION SITE. SR'S ARE UP X 2 IN BED. CALL LIGHT AND BEDSIDE TABLE ARE WITHIN EASY REACH.
--- NOTE | 2016-03-26 22:00 | NUR ---
PT IS RESTING QUIETLY IN BED WITH EYES CLOSED. RESPS ARE EVEN AND UNLABORED. NO ACUTE DISTRESS NOTED.
--- NOTE | 2016-03-27 00:32 | NUR ---
RESTING IN BED WITH EYES CLOSED.
--- NOTE | 2016-03-27 02:47 | NUR ---
RESTING IN BED WITH EYES CLOSED.
--- NOTE | 2016-03-27 06:11 | NUR ---
PT RESTING IN BED WITH IV ABX INFUSING. NO NEEDS VOICED.
--- NOTE | 2016-03-27 06:26 | NUR ---
pt resting quietly, no s/s of symptoms.
--- NOTE | 2016-03-27 06:27 | NUR ---
no s/s of acute distress.
--- NOTE | 2016-03-27 07:16 | NUR ---
RESTING QUIETLY IN BED. CALL LIGHT IN REACH
--- NOTE | 2016-03-27 13:23 | NUR ---
RESTING IN BED. IN ROOM WITH PT. DENIES NEEDS OR C/O
[2016-03-27 13:25] VITALS: BP 100/60
--- NOTE | 2016-03-27 18:19 | NUR ---
SITTING ON SIDE OF BED. DENIES NEEDS.
--- NOTE | 2016-03-27 19:20 | NUR ---
PT. IN BED LYING ON HIS LEFT SIDE WITH EYES CLOSED AND RESP. EVEN. PT. AWAKENS EASILY AND HIS PAIN MEDICATION ADMIN. 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 ASSESSMENT ALSO COMPLETED. PT. HAS NO VOICED NEEDS AT THIS TIME AND HAS HIS CALL LIGHT WITHIN REACH.
[2016-03-27 21:59] VITALS: BP 120/51
--- NOTE | 2016-03-27 23:40 | NUR ---
PT. IN BED WITH HOB FLAT FOR COMFORT WITH EYES CLOSED AND RESP. EVEN. CALL LIGHT IS WITHIN REACH.
--- NOTE | 2016-03-28 04:52 | NUR ---
PT. IN BED WITH HOB FLAT PER PT. CHOICE. EYES CLOSED AND RESP. EVEN. CALL LIGHT WITHIN REACH.
--- NOTE | 2016-03-28 07:29 | NUR ---
RESTING QUIETLY IN BED. CALL LIGHT IN REACH
[2016-03-28 10:51] VITALS: BP 117/65
--- NOTE | 2016-03-28 12:43 | NUR ---
SITTING ON SIDE OF BED WITH . IS READY TO GO HOME. DR PATEL NOTIFIED OF PT REQUEST TO GO HOME TODAY.
--- NOTE | 2016-03-28 14:00 | NUR ---
DC HOME WITH ALL PERSONAL BELONGINGS. FAMILY IN ROOM WITH PT. IV DC/D. INSTRUCTED PT TO FOLLOW UP WITH PCP.
--- NOTE | 2016-03-29 09:36 | NUR ---
LATE ENTRY: PATIENT DISCHARGES ON WEEKEND. PATIENT INSTRUCTED PER NURSE TO FOLLOW UP WITH PCP.
--- NOTE | 2016-03-29 14:19 | RHP ---
PATIENT: JOSE GATICA MEDICAL RECORD: [id number] ACCOUNT: [id number] LOCATION:[facility]1114 : 42 ADMISSION DATE: 03/22/16 REHABILITATION HISTORY AND PHYSICAL EXAMINATION POST ADMISSION PHYSICIAN EXAMINATION Post Admission Physical Examination and History and Physical DATE OF ADMISSION: 03/22/2016 ADMITTING DIAGNOSES: Acute lacunar infarction and acute encephalopathy and also [place] spotted fever. HISTORY OF PRESENT ILLNESS: The patient is a gentleman who is admitted to the inpatient rehab for cerebrovascular accident, acute lacunar infarction and also acute encephalopathy. He is a patient of Dr. Hernandez, who was recently hospitalized on March 10 and treated for early sepsis and prostatitis. He presented to the hospital, slurred speech, left upper extremity numbness and facial tingling. Symptoms started the day before and then subsided. The next morning, symptoms started again with left upper extremity numbness again slurred speech, began having a headache at night along with indigestion. He had nausea and vomiting on admit, but that resolved. The informed Dr. Hernandez at Dr. Pagan's office called and informed him that he had come back positive for [place] spotted fever. He had stated that he had not been both hot and cold, but recorded No fever since being discharged from the hospital on March 13. The did report that the patient nausea, vomiting, headache on March 07. CT head was done and shows chronic changes from previous study, but nothing acute. He has been admitted and an MRI of the head was found to have acute lacunar infarction. He started by speech therapy and found to have oropharyngeal dysphagia, dysarthric speech. Definitely need inpatient rehab to get back to his prior level of functioning and also to make sure that he is not aspirating. COMORBIDITIES: Include nausea and vomiting, chronic kidney disease, dementia, chronic back pain, oropharyngeal dysphagia, dysarthric speech, hyperlipidemia, sleep apnea, gastroesophageal reflux disease, Schatzki's ring, renal stones, goiter, chronic pharyngitis, dysphonia, and hearing loss. PAST MEDICAL HISTORY: Significant for hyperlipidemia, sleep apnea, gastroesophageal reflux disease, Schatzki's ring, renal stones, chronic renal insufficiency, goiter, dementia, chronic pharyngitis, dysphonia and hearing loss. ALLERGIES: PRAVACHOL. CURRENT MEDICATIONS: Include Flomax 0.4 mg daily. He is on potassium citrate 15 mg t.i.d., niacin 500 mg daily, multivitamin daily, lisinopril 2.5 mg daily, Floranex daily, Plavix 75 mg daily, Rocephin 1 g b.i.d., aspirin 325 mg daily, allopurinol 100 mg daily, glucosamine daily, Pyridium p.r.n., hydrocodone 7.5/325 as needed for pain, Pepcid 20 mg b.i.d., Colace 100 mg b.i.d., and Tylenol p.r.n. HABITS: No alcohol or tobacco use. FAMILY HISTORY: Noncontributory. HISTORY AND PHYSICAL [id number] JOSE GATICA SOCIAL HISTORY: The patient is and lives up in [place], would like to return home with his . REVIEW OF SYSTEMS: GENERAL: He does complain of some weakness or fatigue. HEENT: Denies cold, cough, or congestion. CARDIOVASCULAR: Denies any chest pain. PHYSICAL EXAMINATION: VITAL SIGNS: Stable, afebrile. GENERAL: Elderly gentleman in no acute distress, alert upon exam. HEENT: Normocephalic, atraumatic. Mucosa moist. NECK: Supple. No lymphadenopathy. LUNGS: Clear at this time. HEART: Regular rate and rhythm. ABDOMEN: Benign. EXTREMITIES: No clubbing, cyanosis or edema. NEUROLOGIC: He does have some weakness involving his left side. LABORATORY DATA: White count is 4.3, H&H of 12.5 and 38.5 and platelet count is 167. Sodium is 140, potassium 4.4, BUN and creatinine of 27 and 1.8 and blood sugar is noted to be 100. ASSESSMENT: This is a 75-year-old gentleman admitted to the rehab with a working diagnosis of acute lacunar infarction infecting his left side. The patient has potential to make improvement. We instituted the following multidisciplinary therapies including to, but not limited to physical, occupational, respiratory, speech, nutritional services, prosthetics and orthotics. Given his complex condition and risk for more complications, rehabilitation services cannot be provided at a low level of care such as a [facility] facility. PLAN: 1. Admit to [facility] rehab for intensive inpatient therapy to include the following disciplines: A. Physical therapy to improve gait, all transfer skills and bed mobility to a modified independent level. B. Occupational therapy to improve activities of daily living to a modified independent level. C. Case management to assist with discharge planning and placement options. D. Nutrition to assist with nutritional needs. E. Rehabilitation nursing to assist in monitoring the patient's underlying medical conditions and to assist with any type of bowel or bladder management. 2. The patient's current medication and medical care will be continued. 3. The patient will be placed on standard fall precautions. 4. The patient's estimated length of stay is approximately 7-10 days. 5. We will discuss this patient during care team staff meeting this week. TRANSINT:[id number] Voice Confirmation ID: [id number] DOCUMENT ID: [id number] HISTORY AND PHYSICAL [id number] JOSE GATICA SCOTT MD at 1419 CC: [id number] DICTATION DATE: 03/23/16 0856 CARDIOLOGY TEACHER: 03/23/16 0948 DIS IN 03/28/[address] [address]
== END 2016-03-28 14:00 | disposition home or self-care (01) | DRG 64 ==
LOC: D.REHAB 19:29
PROVIDERS: ADMIT Emergency Medicine
DX: I63.8 Other cerebral infarction (principal); G93.40 Encephalopathy, unspecified; A77.0 Spotted fever due to Rickettsia rickettsii; G46.7 Other lacunar syndromes; R11.2 Nausea with vomiting, unspecified; N18.9 Chronic kidney disease, unspecified; F03.90 Unspecified dementia, unspecified severity, without behavioral disturbance, psychotic disturbance, mood disturbance, and anxiety; M54.9 Dorsalgia, unspecified; G89.29 Other chronic pain; R13.12 Dysphagia, oropharyngeal phase; R47.1 Dysarthria and anarthria; E78.5 Hyperlipidemia, unspecified; G47.30 Sleep apnea, unspecified; K21.9 Gastro-esophageal reflux disease without esophagitis; K22.2 Esophageal obstruction; N20.0 Calculus of kidney; E04.9 Nontoxic goiter, unspecified; J31.2 Chronic pharyngitis; H91.90 Unspecified hearing loss, unspecified ear; E87.6 Hypokalemia; G47.33 Obstructive sleep apnea (adult) (pediatric); R49.0 Dysphonia

== ENCOUNTER 2016-07-01 20:32 | Emergency (ER) | payer MEDICARE, OTHER ==
[2016-07-01 21:56] LABS: BASOPHILS 0 % (0-2); EOSINOPHILS 0 % (0-7); HEMATOCRIT 40.7 % (42.0-54.0); HEMOGLOBIN 13.5 g/dL (13.5-17.5); IMMATURE GRANULOCYTES 0.2 % (0-5); LYMPHOCYTES 5.9 % (15-50); MCH 30.6 pg (26.0-34.0); MCHC 33.2 g/dL (31.0-37.0); MCV 92.3 fL (80.0-100.0); MEAN PLATELET VOLUME 10.3 fL (7.4-10.4); MONOCYTES 4.4 % (2-11); NEUTROPHILS 89.5 % (40-80); PLATELET COUNT 153 10x3/uL (130-400); RBC 4.41 10x6/uL (4.20-6.10); RDW 13.5 % (11.5-14.5); WBC 9.8 10x3/uL (4.8-10.8)
[2016-07-01 22:02] LABS: APPEARANCE CLEAR (CLEAR); BILIRUBIN NEGATIVE (NEGATIVE); COLOR YELLOW (YELLOW); GLUCOSE NEGATIVE (NEGATIVE); KETONE NEGATIVE (NEGATIVE); LEUKOCYTE ESTERASE NEGATIVE (NEGATIVE); NITRITE NEGATIVE (NEGATIVE); PROTEIN NEGATIVE (NEGATIVE); SPECIFIC GRAVITY 1.005 (1.005-1.020); UROBILINOGEN NORMAL (NORMAL)
[2016-07-01 22:03] LABS: BACTERIA FEW /hpf (NONE SEEN); EPITHELIAL CELLS 0-5 /hpf (0-5); WHITE CELLS - URINE 0-5 /hpf (0-5)
[2016-07-01 22:06] LABS: APTT 27.2 SECONDS (22.8-39.4); INR 1.07 (0.85-1.17); PROTIME 13.8 SECONDS (11.6-15.0)
[2016-07-01 22:10] LABS: ALBUMIN 3.4 g/dL (3.4-5.0); ANION GAP 11.2 mmol/L (8-16); BILIRUBIN - TOTAL 0.48 mg/dL (0.2-1.3); CALCIUM 9.1 mg/dL (8.5-10.1); CARBON DIOXIDE 26.2 mmol/L (21.0-32.0); POTASSIUM - SERUM 4.4 mmol/L (3.5-5.1); PROTEIN - SERUM 8.1 g/dL (6.4-8.2)
== END 2016-07-01 23:43 | disposition home or self-care (01) ==
LOC: D.ER 20:32
PROVIDERS: Emergency Medicine
DX: R53.1 Weakness (principal); N18.9 Chronic kidney disease, unspecified

== ENCOUNTER 2016-10-11 10:56 | Inpatient (IN) | payer MEDICARE, OTHER ==
[~2016-10-11] VITALS: Ht 177.8 cm; Wt 78.5 kg
[2016-10-11] VITALS (9 sets, daily range): BP systolic 140–167; BP diastolic 59–90; BMI 24.8
--- NOTE | ~2016-10-11 | HEMODYNAMI ---
PATIENT:JSOE GATICA MEDICAL RECORD: [id number] : 44 LOCATION:D.CAT ADMISSION DATE: 10/11/16 Generatedon:10/11/201613:37 Patient name: JOSE GATICA Patient #: [id number] SSN: : 1940 Date of study: 10/11/2016 Page: Of Hemodynamic Procedure Report Patient Data Patient Demographics Procedure consent was obtained First Name: JOSE Gender: Male Last Name: GAVI : 1940 Middle Initial: L Age: 76 year(s) Patient #: [id number] Race: Unknown Additional ID: [id number] Contact details Address: [facility] [address] State: [place] City: [place] Zip code: [address] Admission Admission Data Admission Date: 10/11/2016 Admission Time: 10:56 Procedure Procedure Types Cath Procedure Diagnostic Procedure LHC LHC w/Coronaries Miscellaneous Procedures Moderate Sedation up to 15 minutes Procedure Description Procedure Date Procedure Date: 10/11/2016 Procedure Start Time: 13:22 Procedure Staff Name Function Tamar Corea RN Nurse Davidson Garcia RT Monitor Jc Jones RT Scrub Carlos Lockwood RN Oil Rig Driller Jose J Page MD Performing Physician Procedure Data Cath Procedure Fluoroscopy Diagnostic fluoroscopy Total fluoroscopy Time: 1.1 time: 1.1 min min Diagnostic fluoroscopy Total fluoroscopy dose: 256 dose: 256 mGy mGy Contrast Material Contrast Material Type Amount (ml) Isovue 300 46 Entry Location Entry Primary Successful Side Size Upsize Upsize Entry Closure Valencia ccessful Closure Location (Fr) 1 (Fr) 2 (Fr) Remarks Device Remarks Radial Right 6 Fr Mechanical artery Short Compression Diagnostic catheters Device Type Used For End Catheter Placement Diagnostic Terumo 5Fr Coronary Royal 110cm catheter Angiography Procedure Medications Medication Administration Route Dosage Oxygen NC 2 l/min Heparin Flush Bag added to field 2 bags (1000units/500ml NS) Lidocaine 2% added to field 20 Radial Cocktail added to field 1 syringe (Verapomil 2mg/Nitro 400mcg/Heparin 1500units) Versed I.V. 1 mg Fentanyl I.V. 50 mcg Radial Cocktail I.A. 1 syringe (Verapomil 2mg/Nitro 400mcg/Heparin 1500units) Versed I.V. 0.5 mg Fentanyl I.V. 25 mcg Hemodynamics Rest Heart Rate: 108 (bpm) Pressure Samples Time Site Value (mmHg) Purpose Heart Use Rate(bpm) 13:27 LV 96/7,13 Snapshot 79 13:28 LV 95/10,13 Snapshot 74 Gradients Valve Time Site Site Mean SEP/DFP Peak To Heart Use 1 2 (mmHg) (sec/min) Peak Rate (mmHg) (bpm) Aortic 13:28 LV AO 67 Snapshots Pre Cath Intra NCS Post Cath Vital Signs Time Heart Resp SPO2 NIBP (mmHg) Rhythm Pain Sedation Rate (ipm) (%) Status Level (bpm) 13:00:34 75 16 100 Measuring NSR 0 (11) 10(A) , No pain 13:00:52 106 16 100 146/86(120) NSR 0 (11) 10(A) , No pain 13:05:10 61 16 100 144/74(106) NSR 0 (11) 10(A) , No pain 13:09:28 61 16 100 141/74(112) NSR 0 (11) 10(A) , No pain 13:13:46 60 16 100 141/73(116) NSR 0 (11) 10(A) , No pain 13:18:05 61 17 100 136/74(115) NSR 0 (11) 10(A) , No pain 13:22:21 63 16 100 135/75(102) NSR 0 (11) 10(A) , No pain 13:26:39 68 16 98 122/68(95) NSR 0 (11) 9(A) , No pain 13:30:53 73 16 97 105/62(78) NSR 0 (11) 9(A) , No pain 13:35:00 71 16 96 120/61(90) NSR 0 (11) 9(A) , No pain Medications Time Medication Route Dose Verified Delivered Reason Notes Effectiveness by by 13:00:36 Oxygen NC 2 l/min Jose J Boyle Per St. Dmitri Corea RN physician 13:00:44 Heparin Flush added 2 bags Jose J Lux used for Bag to Kaylee [place] procedure (1000units/500ml field MD CARO NS) 13:00:51 Lidocaine 2% added 20ml Jose J Lux used for to vial [place] Paxtonia procedure field MD CARO 13:00:57 Radial Cocktail added 1 Jose J Jose J used for (Verapomil to syringe [place] Pa[place] procedure 2mg/Nitro field MD CARO 400mcg/Heparin 1500units) 13:19:25 Versed I.V. 1 mg Jose J Tamar for sedation St. Dmitri Corea RN, MD 13:19:33 Fentanyl I.V. 50 mcg Jose J Tamar for sedation St. Dmitri Corea RN, MD 13:22:45 Versed I.V. 0.5 mg Jose J Tamar for sedation St. Dmitri Corea RN, MD 13:22:58 Fentanyl I.V. 25 mcg Jose J Tamar for sedation PaxtoniaDmitri Corea RN, MD 13:26:36 Radial Cocktail I.A. 1 Jose J Lux for (Verapomil syringe [place] Kaylee vasodilation 2mg/Nitro MD CARO 400mcg/Heparin 1500units) Procedure Log Time Note 12:42:09 Carlos Lockwood RN sent for patient. Start room use. 12:42:11 Time tracking: Regular hours 12:42:15 Plan of Care:Hemodynamics will remain stable., Cardiac rhythm will remain stable., Comfort level will be maintained., Respiratory function will remain adequate., Patient/ family verbilizes understanding of procedure., Procedure tolerated without complication., Recovers from procedure without complications.. 12:44:08 Patient received from Pre/Post Procedure Room to IR Alert and oriented. Tansferred to table in Supine position. 12:52:34 Warm blankets applied, and david hugger turned on for patient comfort. 12:52:35 Correct patient and procedure confirmed by team. 12:52:37 Signed procedure consent form obtained from patient. 12:52:39 Full Disclosure recording started 12:52:40 - 12:52:45 H&P Date Dictated: 10/11/2016 H&P Addendum completed by physician on day of procedure. (MUST COMPLETE FOR ALL OUTPATIENTS). 12:52:46 Pre-procedure instructions explained to patient. 12:52:47 Pre-op teaching completed and patient verbalized understanding. 12:52:51 Family in waiting room. 12:52:53 Patient NPO since Midnight. 12:53:09 Is the patient allergic to Iodine/contrast media? No. 12:56:25 Is patient on blood thinner?Yes 12:56:28 ACC The patient was administered the following blood thiners within the last 24 hours: ACCPlavix 12:56:33 Patient diabetic? No. 12:56:34 - 12:56:34 ----Pre-sedation anethsthesia assessment.---- 12:56:40 Previous problem with sedation/anesthesia? No ? 12:56:41 Snore? Yes 12:56:42 Sleep apnea? Yes 12:56:43 Deviated septum? No 12:56:44 Opens mouth fully? Yes 12:56:45 Sticks out tongue? Yes 12:56:50 Airway obstruction? No ? 12:56:52 Dentures? Yes ? 12:56:56 Pre procedure: right dorsailis pedis pulse Doppler 12:56:59 Modified Maikel's test Radial < 7 seconds 12:57:04 Patient pain scale 0/10 NO PAIN. 12:57:19 IV patent on arrival in left hand with 0.9% NaCl at [facility]. 12:57:20 Sharps counted by scrub and verified by R.N. 12:57:20 Alarms reviewed by R. N. 12:57:35 Right Radial & Right Groin area was prepped with chlora-prep and draped in sterile fashion 12:57:47 Use device set Radial Dx 12:57:48 Acist Syringe opened to sterile field. 12:57:49 Medline Cath Pack opened to sterile field. 12:57:49 Bag Decanter opened to sterile field. 12:57:49 Terumo 6Fr Slender Glidesheath opened to sterile field. 12:57:50 St Gurjit 260cm J .035 wire opened to sterile field. 12:57:50 Acist Hand Control opened to sterile field. 12:57:50 Acist Manifold opened to sterile field. 12:57:51 Tegaderm 4 x 4 opened to sterile field. 12:57:52 MBrace Wrist Support opened to sterile field. 12:58:44 Vital chart was started 13:00:36 Oxygen 2 l/min NC was administered by Tamar Corea RN; Per physician; 13:00:44 Heparin Flush Bag (1000units/500ml NS) 2 bags added to field was administered by Jose J Page MD; used for procedure; 13:00:51 Lidocaine 2% 20ml vial added to field was administered by Jose J Page MD; used for procedure; 13:00:57 Radial Cocktail (Verapomil 2mg/Nitro 400mcg/Heparin 1500units) 1 syring e added to field was administered by Jose J Page MD; used for procedure; 13:03:29 Baseline sample Acquired. 13:03:33 Rhythm: sinus rhythm 13:19:09 Physician arrived 13:19:09 --------ALL STOP TIME OUT------ 13:19:10 Final Timeout: patient, procedure, and site verified with staff and physician. All members of the team are in agreement. 13:19:12 Right Radial & Right Groin site verified by team. 13:19:17 Physical assessment completed. ASA score P 2 - A patient with mild systemic disease as per Jose J Page MD. 13:19:20 Sedation plan: IV Moderate Sedation Versed, Fentanyl 13:19:25 Versed 1 mg I.V. was administered by Tamra Corea RN; for sedation; 13:19:33 Fentanyl 50 mcg I.V. was administered by Tamar Corea RN; for sedation; 13:21:54 Procedure started. 13:22:06 Local anesthetic to right radial artery with Lidocaine 1% by Jose J Kumari MD.INITIAL ACCESS ONLY 13:22:38 A 6 Fr Short sheath was inserted into the Right Radial artery 13:22:45 Versed 0.5 mg I.V. was administered by Tamar Corea RN; for sedation; 13::58 Fentanyl 25 mcg I.V. was administered by Tamar Corea RN; for sedation; 13:26:36 Radial Cocktail (Verapomil 2mg/Nitro 400mcg/Heparin 1500units) 1 syring e I.A. was administered by Jose J Page MD; for vasodilation; 13::56 A Diagnostic Terumo 5Fr Royal 110cm catheter was advanced over the wire and used for Coronary Angiography. 13:27:09 Zero performed for pressure channel P1 13:27:17 Zero performed for pressure channel P1 13::20 Zero performed for pressure channel P1 13::36 LV angiography performed. 13:28:37 RCA angiography performed. 13:28:51 LCA angiography performed. 13:29:53 Terumo TR Band Standard opened to sterile field. 13:31:05 Sheath removed intact; hemostasis achieved with Mechanical Compression to the Right Radial artery. 13:31:07 Procedure ended.(Physican Out) 13:31:20 Fluoroscopy time 01.10 minutes. 13:31:24 Fluoroscopy dose: 256 mGy 13:31:24 Flurop Dose total: 256 13:31:52 Contrast amount:Isovue 300 46ml. 13:31:54 Sharps counted by scrub and verified by R.N. 13:31:55 Insertion/operative site no bleeding no hematoma. 13:32:02 Post right radial artery:stable 13:32:04 Post Procedure Pulses reassessed and unchanged 13:32:18 Post-procedure physical assessment completed. ASA score P 2 - A patient with mild systemic disease as per Jose J Page MD. 13:32:21 Post procedure rhythm: unchanged. 13:32:39 Post procedure instruction explained to patient.Patient verbalizes understanding. 13:32:40 Procedure and supply charges have been captured, reviewed, submitted an d are correct. 13:34:19 TR band inflated with 10cc of air. 13:36:46 Report given to Pre/Post Procedure Room. 13:36:51 Patient transfered to Pre/Post Procedure Room with Stretcher. 13:37:17 Vital chart was stopped Device Usage Item Name Manufacture Quantity Catalog Hospital Part Current Minimal Lot# / Number Charge Number Stock Stock Serial# Code Acist Acist 1 [id number] [id number] 960666 [id number] 20 Syringe Medical Systems Inc Medline Cardinal 1 [id number] 57860 806378 5 Cath Pack Health Bag Microtek 1 2001S 2562017 83348 611438 5 Decanter Medical Inc. Terumo 6Fr Terumo 1 [id number] 701092 595965 061499 [address] Gur[address] St Gurjit 1 [id number] 824004 886618 900387 30 260cm J .035 wire Acist Hand Acist 1 62706 812674 623439 641081 5 Control Medical Systems Inc Acist Acist 1 03794 184013 693034 339103 5 Manifold Medical Systems Inc Tegaderm 4 3M 1 1626W 569800 047644 312349 5 x 4 MBrace Advanced 1 140-0250-00 081691 83815 060788 5 Wrist Vascular Support Dynamics Diagnostic Terumo 1 80-2544 559668 136769 853645 5 Terumo 5Fr Royal 110cm catheter Terumo TR Terumo 1 [id number] 332542 517361 213256 40 Band Standard Signature Audit [place] Stage Time Signature Unsigned Intra-Procedure 10/11/2016 Davidson 1:37:14 PM Shuffield RT (R) (CV) Signatures Monitor : Davidson Signature : Shuffield RT Date : Time : [id number] [place] [address]
[2016-10-11] MEDS ORDERED: BETAPACE 80 MG80 MG PO (11:19)
[2016-10-11] MEDS ORDERED: NEXIUM40 MG PO (11:27)
[2016-10-11 11:35] LABS: BASOPHILS 0.2 % (0-2); EOSINOPHILS 3.6 % (0-7); HEMATOCRIT 43.4 % (42.0-54.0); HEMOGLOBIN 14.6 g/dL (13.5-17.5); IMMATURE GRANULOCYTES 0.2 % (0-5); LYMPHOCYTES 31.6 % (15-50); MCH 30.7 pg (26.0-34.0); MCHC 33.6 g/dL (31.0-37.0); MCV 91.4 fL (80.0-100.0); MEAN PLATELET VOLUME 10.4 fL (7.4-10.4); MONOCYTES 9.7 % (2-11); NEUTROPHILS 54.7 % (40-80); PLATELET COUNT 164 10x3/uL (130-400); RBC 4.75 10x6/uL (4.20-6.10); RDW 13.4 % (11.5-14.5); WBC 5.8 10x3/uL (4.8-10.8)
[2016-10-11 11:55] LABS: ANION GAP 12.4 mmol/L (8-16); CALCIUM 8.9 mg/dL (8.5-10.1); CARBON DIOXIDE 27.3 mmol/L (21.0-32.0); CREATININE - SERUM 1.9 mg/dL (0.6-1.3); POTASSIUM - SERUM 4.7 mmol/L (3.5-5.1)
--- NOTE | 2016-10-11 14:05 | NUR ---
RESTING WITH FAMILY AT SIDE, TR BAND TO RIGHT WRIST INTACT, NO BLEEDING
--- NOTE | 2016-10-11 14:30 | NUR ---
NO CHANGES, RESTING WITH FAMILY AT SIDE
--- NOTE | 2016-10-11 14:45 | NUR ---
AWAKE AND CONFUSED, COMBATIVE, ALERT BUT NO ORIENTATION NOTED, FAMILY AT SIDE HOLDING HANDS TO KEEP SAFE. SIDE RAILS UP. NURSE IN ROOM.
--- NOTE | 2016-10-11 14:55 | NUR ---
CONTINUES COMBATIVE- NEW ORDERS FROM DR VO, AWAITING MEDS FROM PHARMACY. FAMILY AT SIDE X 4, NURSE IN ROOM.
--- NOTE | 2016-10-11 15:10 | NUR ---
HALDOL 2MG GIVEN IM LEFT GM PER DUNG THOMPSON RN. FAMILY REMAINS AT SIDE-HOLDING HANDS AND LEGS TO PREVENT HARM TO PT. SIDE RAILS UP
--- NOTE | 2016-10-11 15:20 | NUR ---
SLIGHTLT CALMER AT THIS TIME, 0X1, FAMILY REMAINS AT SIDE.
--- NOTE | 2016-10-11 15:35 | NUR ---
AWAKE AND COMBATIVE, FAMILY CONTINUES TO HOLD HANDS AND KEEP PT SAFE, PAGED DR. VO
--- NOTE | 2016-10-11 15:45 | NUR ---
DR VO CALL- NEW ORDERS RECEIVED, ROMIZACON 0.2MG GIVEN IV WITH NO CHANGE IN PTS ORIENTATION, FAMILY REMAINS AT SIDE-HOLDING HANDS AND TRYING TO CALM PT- NOT HELPING.
--- NOTE | 2016-10-11 15:55 | NUR ---
CALL DR VO- NEW ORDERS RECEIVED
--- NOTE | 2016-10-11 16:05 | NUR ---
HALDOL 5 MG GIVEN L VG, TRYING TO CALM FOR HEAD CT, LIGHTS OUT, FAMILY AT SIDE, HOLDING HANDS AND LEGS
--- NOTE | 2016-10-11 16:15 | NUR ---
CONTINUES TO BE COMBATIVE, FAMILY AT SIDE, NURSE CONTINUES AT SIDE, IV LEFT HAND PATENT.
--- NOTE | 2016-10-11 16:30 | NUR ---
NO CHANGES- DR VO CALL WITH NEW ORDERS, MOVING PT TO CVICU DUE TO STATE OF CONFUSION, FAMILY HAS NOT LEFT PTS SIDE, 800CC NS INFUSED, 400CC URINE OUT. REPORT TO MARC LAMA RN.
--- NOTE | 2016-10-11 17:00 | NUR ---
PT PLACED IN SOFT WRIST RESTRAINTS. COMBATIVE, PULLING AT LINES AND DRESSINGS. TRYING TO CLIMB OUT OF BED. UNABLE TO ORIENT. DOES NOT FOLLOW INSTRUCTIONS. UNABLE TO KEEP SAFE.
--- NOTE | 2016-10-11 17:15 | NUR ---
PT CLEANED UP FROM URINARY AND BOWEL INCONTINENCE. ALL NEW LINENS.
--- NOTE | 2016-10-11 18:00 | NUR ---
PT CLEANED UP FROM URINARY INCONTINENCE AND BOWEL INCONTINENCE. 20G PIV PLACED IN RIGHT FOREARM. STICK X1. PIV FROM LEFT HAND NO LONGER PATENT. REMOVED, TIP INTACT.
--- NOTE | 2016-10-11 19:15 | NUR ---
DR VO CALLED. NEW ORDERS OBTAINED.
[2016-10-11 19:39] LABS: BASOPHILS 0.1 % (0-2); EOSINOPHILS 0.4 % (0-7); HEMATOCRIT 45.4 % (42.0-54.0); HEMOGLOBIN 15.5 g/dL (13.5-17.5); IMMATURE GRANULOCYTES 0.3 % (0-5); LYMPHOCYTES 8.2 % (15-50); MCH 30.8 pg (26.0-34.0); MCHC 34.1 g/dL (31.0-37.0); MCV 90.3 fL (80.0-100.0); MEAN PLATELET VOLUME 10.2 fL (7.4-10.4); MONOCYTES 5.7 % (2-11); NEUTROPHILS 85.3 % (40-80); PLATELET COUNT 176 10x3/uL (130-400); RBC 5.03 10x6/uL (4.20-6.10); RDW 13.5 % (11.5-14.5)
--- NOTE | 2016-10-11 19:40 | NUR ---
DR HECK O/C PA PAGED TO GIVE UDPATE. AWAITING CALLBACK.
--- NOTE | 2016-10-11 20:19 | NUR ---
RADIOLOGY PAGED FOR HEAD CT. NOT AVAILABLE AT THIS TIME. WILL CALL BACK.
--- NOTE | 2016-10-11 20:32 | NUR ---
RADIOLOGY CALLED. STATES WILL NOW DO HEAD CT.
--- NOTE | 2016-10-11 21:00 | NUR ---
FAMILY AT BEDSIDE. VSS. GIVEN UPDATE. WILL CONTINUE TO MONITOR
--- NOTE | 2016-10-11 23:20 | NUR ---
REASSESSMENT COMPLETE PER FLOW SHEET. VSS. NO NEW CHANGES. FAN GIVEN FOR TEMP 103.4
[2016-10-12] VITALS (25 sets, daily range): BP systolic 101–164; BP diastolic 53–94; Ht 177.8 cm; Wt 78.5 kg
--- NOTE | 2016-10-12 01:12 | NUR ---
TEMP 102.6. ICE AND FAN APPLIED WILL REASSESS
--- NOTE | 2016-10-12 03:09 | NUR ---
REASSESSMENT COMPLETE PER FLOW SHEET. VSS. NO NEW CHANGES. WILL CONTINUE TO MONITOR
[2016-10-12 05:35] LABS: BASOPHILS 0.1 % (0-2); EOSINOPHILS 0 % (0-7); IMMATURE GRANULOCYTES 0.3 % (0-5); LYMPHOCYTES 9.3 % (15-50); MCH 30.6 pg (26.0-34.0); MCV 90.1 fL (80.0-100.0); MEAN PLATELET VOLUME 10.5 fL (7.4-10.4); MONOCYTES 5.7 % (2-11); NEUTROPHILS 84.6 % (40-80); PLATELET COUNT 141 10x3/uL (130-400); RBC 5.55 10x6/uL (4.20-6.10); RDW 13.6 % (11.5-14.5); WBC 14.7 10x3/uL (4.8-10.8)
[2016-10-12 05:41] LABS: ALBUMIN 3.9 g/dL (3.4-5.0); ANION GAP 21.2 mmol/L (8-16); BILIRUBIN - TOTAL 1.01 mg/dL (0.2-1.3); CALCIUM 8.9 mg/dL (8.5-10.1); CARBON DIOXIDE 19.7 mmol/L (21.0-32.0); MAGNESIUM - SERUM 1.4 mg/dL (1.8-2.4); PHOSPHOROUS 2.8 mg/dL (2.5-4.9); POTASSIUM - SERUM 4.9 mmol/L (3.5-5.1); PROTEIN - SERUM 8.6 g/dL (6.4-8.2)
--- NOTE | 2016-10-12 06:18 | NUR ---
[facility]. AWAITING CALLBACK.
--- NOTE | 2016-10-12 07:31 | NUR ---
SHIFT ASSESSMENT COMPLETE. PATIENT FOLLOWS COMMANDS TO BEST OF ABILITY WITH HAND GESTURES. CALL LIGHT WITHIN REACH, AND BED IN LOW POSITION.
--- NOTE | 2016-10-12 08:33 | OP ---
PATIENT NAME: JOSE GATICA MEDICAL RECORD: [id number] :44 [facility] ADMISSION DATE: SURGEON: JOANIE VO MD DATE OF OPERATION: 10/11/2016 PROCEDURE: Left heart catheterization, selective coronary angiography, right radial approach. CATHETERS: [place] catheter, radial sheath. The procedure was well tolerated. The patient returned to zhang, sheath removed. TR band was placed. FINDINGS: Left ventriculography in 30-degree VARGAS view: Normal wall motion, normal systolic function. CORONARY ANATOMY. LEFT MAIN: Left main is free of disease. LAD: Free of disease in the diagonal system. CIRCUMFLEX: Free of disease in the marginal system. RIGHT CORONARY ARTERY: Dominant artery, gives rise to PDA, free of disease. IMPRESSION: Normal systolic function. Normal coronary anatomy. TRANSINT:[id number] Voice Confirmation ID: [id number] DOCUMENT ID: [id number] JOANIE VO MD at 0833 CC: [id number] DICTATION DATE: 10/11/16 1337 MEDIA TECHNICIAN: 10/11/16 1637 [facility] [address] [id number]
--- NOTE | 2016-10-12 08:59 | NUR ---
DR PERALTA PAGED FOR CONSULT PER ORDER. DR GOLD PAGED FOR CATHETER PLACEMENT PER ORDER. HE IS AWAY FROM [place] UNTIL THIS AFTERNOON. ASKED FOR DR GARCIA TO BE CONSULTED TO PLACE CATHETER. DR GARCIA CALLED. IS AWARE OF NEED FOR CATHETER PLACEMENT.
--- NOTE | 2016-10-12 09:06 | NUR ---
CONSENT FOR COUDE CATHETER SIGNED BY RITCHIE GATICA. SHE REQUESTS ABSOLUTELY NO SEDATION BE GIVEN TO PATIENT.
--- NOTE | 2016-10-12 10:41 | NUR ---
PT TRANSFERED TO ICU ROOM 2312.
--- NOTE | 2016-10-12 10:41 | NUR ---
FAMILY NOTIFIED OF PATIENT TRANSFER TO 7564
--- NOTE | 2016-10-12 11:00 | NUR ---
DR. GARCIA HERE IN TO PERFORM PROCEDURE FOR MONTOYA CATHETER PLACEMENT.
--- NOTE | 2016-10-12 11:49 | NUR ---
UA TO LAB. PATIENT IS RESTING QUIELTY AT THIS TIME. CALL LIGHT WITHIN REACH, AND BED IN LOW POSITION. IV INFUSING MAGNEISIUM AT 100ML/HR WITHOUT REDNESS OR EDEMA NOTED.
--- NOTE | 2016-10-12 11:59 | NUR ---
PATIENT HAD SMALL VERY ODOROUS YELLOWISH BM INCONTENT IN BED.
[2016-10-12 12:02] LABS: APPEARANCE HAZY (CLEAR); COLOR YELLOW (YELLOW); LEUKOCYTE ESTERASE TRACE (NEGATIVE); NITRITE NEGATIVE (NEGATIVE); PROTEIN 2+ mg/dL (NEGATIVE); SPECIFIC GRAVITY 1.015 (1.005-1.020)
[2016-10-12 12:03] LABS: BACTERIA MODERATE /hpf (NONE SEEN); BILIRUBIN NEGATIVE (NEGATIVE); EPITHELIAL CELLS 0-5 /hpf (0-5); GLUCOSE NEGATIVE (NEGATIVE); KETONE MODERATE mg/dL (NEGATIVE); MUCUS <1+ /lpf (NONE SEEN); UROBILINOGEN NORMAL (NORMAL); WHITE CELLS - URINE OCC /hpf (0-5)
[2016-10-12 12:04] LABS: WAXY CAST RARE /lpf (NONE SEEN)
[2016-10-12 12:05] LABS: GRANULAR CAST RARE /lpf (NONE SEEN); HYALINE CAST OCC /lpf (NONE SEEN)
--- NOTE | 2016-10-12 12:30 | NUR ---
PATIENT HAD LARGE YELLOW LIQUID BM INCONTENANT. PATIENT CLEANED AND NEW LINENS. FAMILY AT BEDSIDE. CALL LIGHT WITHIN REACH, AND BED IN LOW POSITION.
--- NOTE | 2016-10-12 13:15 | NUR ---
DR. PRABHAKAR NOTIFIED OF CONSULT.
--- NOTE | 2016-10-12 13:29 | NUR ---
PATIENT RETURN FROM CT, RADIOLOGY WAS ABLE TO PERFORM ABDOMINAL CT.
--- NOTE | 2016-10-12 15:00 | NUR ---
PATIENT SLEEPING FAMILY ENTERED ROOM AND PATIENT BECAME RESTLESS AND MOVING ABOUT IN BED CONTINOUSLY.
--- NOTE | 2016-10-12 15:50 | NUR ---
DR. PACE HERE IN TO SPEAK WITH PATIENTS FAMILY.
--- NOTE | 2016-10-12 16:19 | NUR ---
DR. SCHAEFFER CONTACTED OFFICE TO NOTIFY HIM OF CONSULT FOR PATIENT.
--- NOTE | 2016-10-12 17:00 | NUR ---
VS ENTERED FROM PREV CLOTH TESTER PER RECORDING'S ON NURSES SHEET.
--- NOTE | 2016-10-12 19:30 | NUR ---
PT AWAKE. DOES NOT FOLLOW COMMANDS OR RESPOND TO VERBAL. AGGITATED. PULLS AT LINES.
--- NOTE | 2016-10-12 21:10 | NUR ---
PT IS CALM AND SLEEPING. AWAKENS FREQUENTLY AND PULS AT LINES THEN GOES BACK TO SLEEP. NURSE AT BEDSIDE MONITORING CLOSELY.
--- NOTE | 2016-10-12 21:30 | NUR ---
AT BEDSIDE. EXPLAINED PROCEDURE (CVL PLACEMENT) AND OBTAINED WRITTEN CONSENT. PT REMAINS AGGITATED. BILATERAL SOFT WRIST RESTRAINTS REMAIN IN PLACE.
[2016-10-13] VITALS (22 sets, daily range): BP systolic 109–136; BP diastolic 56–69
--- NOTE | 2016-10-13 01:00 | NUR ---
PT IS AWAKENING MORE CALM AND IS MORE COOPERATIVE THAN EARLIER. TEMP IS DECREASING. VSS. PIV PATENT.
--- NOTE | 2016-10-13 03:10 | NUR ---
PT IS NEUROLOGICALLY IMPROVING. SPEECH IS MORE UNDERSTANDABLE BUT STILL SLURRED. CONTINUES TO REQUIRE VERY CLOSE MONITORING.
[2016-10-13 04:46] LABS: BASOPHILS 0.1 % (0-2); EOSINOPHILS 0 % (0-7); HEMATOCRIT 42.4 % (42.0-54.0); HEMOGLOBIN 14.4 g/dL (13.5-17.5); IMMATURE GRANULOCYTES 0.2 % (0-5); LYMPHOCYTES 11.9 % (15-50); MCH 30.6 pg (26.0-34.0); MEAN PLATELET VOLUME 11.1 fL (7.4-10.4); MONOCYTES 9.5 % (2-11); NEUTROPHILS 78.3 % (40-80); PLATELET COUNT 150 10x3/uL (130-400); RBC 4.71 10x6/uL (4.20-6.10); RDW 13.8 % (11.5-14.5); WBC 14.2 10x3/uL (4.8-10.8)
[2016-10-13 05:08] LABS: ALBUMIN 3.2 g/dL (3.4-5.0); BILIRUBIN - TOTAL 1.07 mg/dL (0.2-1.3); CALCIUM 8.2 mg/dL (8.5-10.1); PROTEIN - SERUM 7.7 g/dL (6.4-8.2)
[2016-10-13 05:11] LABS: ANION GAP 10.6 mmol/L (8-16); CARBON DIOXIDE 28.8 mmol/L (21.0-32.0); POTASSIUM - SERUM 3.4 mmol/L (3.5-5.1)
--- NOTE | 2016-10-13 05:35 | NUR ---
PT IS AWAKE AND ALERT. FOLLOWS COMMANDS. SPEECH IS CLEAR. WRIST RESTRAINS REMOVED AND BED LINEN CHANGED.
--- NOTE | 2016-10-13 07:10 | NUR ---
PT RESTING ON LEFT SIDE. AWAKENS TO VOICE. FOLLOWS COMMANDS BUT DID NOT ANSWER QUESTIONS. BRUISES NOTED ON RIGHT SHOULDER. S1S2 AUDIBLE. LUNGS CLEAR AT THIS TIME. BS ACTIVE X [address] QUADRANTS. RECTAL TUBE IN PLACE WITH DEPENDENT BAG ON SIDE OF BED. MONTOYA SECURED TO RIGHT THIGH. DEPENDENT BAG ON RIGHT SIDE OF BED. YELLOW URINE NOTED. O2 SAT 98 ON RA. DOXYCYCLINE CURRENTLY INFUSING AT 125ML/HR. SODIUM BICARBONATE NOT INFUSING AT THIS TIME.
--- NOTE | 2016-10-13 09:00 | NUR ---
PT RESTING COMFORTABLY. BED SIDE RAILS UP X 2.
--- NOTE | 2016-10-13 10:01 | NUR ---
PT TRYING TO GET OUT OF BED. ABLE TO CALM HIM DOWN AND GET HIM BACK IN BED. EXPLAINED THAT HE IS IN THE ICU AND HAS LINES CONNECTED TO HIM. INSTRUCTED TO STAY IN BED AND PUT CALL LIGHT IN REACH. INSTRUCTED ON HOW TO USE CALL LIGHT FOR HELP. WILL CONTINUE TO MONITOR.
--- NOTE | 2016-10-13 10:50 | NUR ---
DR. PRABHAKAR SPOKE WITH FAMILY.
--- NOTE | 2016-10-13 11:03 | NUR ---
PT RESTING COMFORTABLY AT THIS TIME. TEMPERATURE 98.6 AXILLARY. NO OTHER NEEDS AT THIS TIME. REASSESMENT COMPLETED.
--- NOTE | 2016-10-13 12:24 | NUR ---
FAMILY IN ROOM.
--- NOTE | 2016-10-13 12:50 | NUR ---
DR. PRABHAKAR CANCELLED CVL PLACEMENT.
--- NOTE | 2016-10-13 14:11 | NUR ---
PT RESTING COMFORTABLY. FOLLOWS COMMANDS. ABLE TO ROLL ON SIDE WHEN INSTRUCTED TO. O2 SAT 97% ON ROOM AIR. SIDE RAILS UP X 3. WILL CONINUE TO MONITOR.
--- NOTE | 2016-10-13 15:12 | NUR ---
READ IN DR. PERALTA'S NOTE THAT HE WANTED TO DISCONTINUE BICARB. CALLED AND VERIFIED WHETHER THAT WAS THE PLAN. HE SAID TO GO AHEAD AND DISCONTINUE IT.
[2016-10-14] VITALS (21 sets, daily range): BP systolic 113–158; BP diastolic 59–88
[2016-10-14 04:35] LABS: BASOPHILS 0.1 % (0-2); EOSINOPHILS 0.1 % (0-7); HEMATOCRIT 38.5 % (42.0-54.0); IMMATURE GRANULOCYTES 0.2 % (0-5); LYMPHOCYTES 15.7 % (15-50); MCH 30.7 pg (26.0-34.0); MCHC 33.8 g/dL (31.0-37.0); MCV 90.8 fL (80.0-100.0); MEAN PLATELET VOLUME 10.7 fL (7.4-10.4); MONOCYTES 9.3 % (2-11); NEUTROPHILS 74.6 % (40-80); PLATELET COUNT 125 10x3/uL (130-400); RBC 4.24 10x6/uL (4.20-6.10); RDW 13.7 % (11.5-14.5)
[2016-10-14 04:36] LABS: WBC 9.9 10x3/uL (4.8-10.8)
[2016-10-14 04:53] LABS: ALBUMIN 2.7 g/dL (3.4-5.0); ANION GAP 10.3 mmol/L (8-16); BILIRUBIN - TOTAL 0.87 mg/dL (0.2-1.3); CALCIUM 7.9 mg/dL (8.5-10.1); CREATININE - SERUM 1.7 mg/dL (0.6-1.3); POTASSIUM - SERUM 3.3 mmol/L (3.5-5.1)
--- NOTE | 2016-10-14 07:00 | NUR ---
PT AWAKE AND ALERT, APPEARS TO BE ORIENTED AT THIS TIME AND OBEYS COMMANDS APPROPRIATELY. DENIES PAIN AT THIS TIME. COMPLETE SHIFT ASSESSMENT DOCUMENTED PER FLOWSHEET. WILL CONTINUE TO MONITOR CLOSELY. CALL LIGHT WITHIN REACH
--- NOTE | 2016-10-14 10:13 | NUR ---
NUTRITION MONITORING & EVAL CHART REVIEWED. NURSING TO ORDER AHA DIET. RD FOLLOWING
--- NOTE | 2016-10-14 11:00 | NUR ---
DR VO ROUNDED ON PT AND STATES HE IS STABLE TO TRANSFER TO FLOOR. ATTEMPTED TO CALL PRIMARY PHYSICIAN FOR ORDERS TO TRANSFER. WAITING FOR PHONE CALL PRIOR TO TRANSFER. DIET ORDERED FOR PT. NO FURTHER CHANGES
--- NOTE | 2016-10-14 13:00 | NUR ---
FAMILY AT BEDSIDE AND UPDATE GIVEN. PT SITTING UP IN BED AND WAS ABLE TO EAT LUNCH WITH MINIMAL ASSISTANCE. WILL CONTINUE TO MONITOR AND WAIT FOR ORDERS FROM PRIMARY.
--- NOTE | 2016-10-14 13:13 | NUR ---
* Is the patient Alert and Oriented? Yes 0 * How many steps to enter\exit or inside your home? 0 0 * PCP Dr. Hernandez 0 * Pharmacy [facility] 0 * Preadmission Environment Home with Family 0 * ADLs Independent 0 * List name and contact numbers for known caregivers / representatives who currently or will assist patient after discharge: Spouse - Flory [phone] 0 * Additional services required to return to the preadmission environment? No 0 * Can the patient safely return to the preadmission environment? Yes 0 * Has this patient been hospitalized within the prior 30 days at any hospital? No Patient Name: JOSE GATICA Admission Status: Elective Accout number: [id number] Admission Date: 10-12-2016 : 1940 Admission Diagnosis:CHEST PAIN, UNSPECIFIED Attending: GOLDEN Current LOS: 2 Planned Disposition: Home Primary Insurance: MEDICARE A & B Discharge Planning Comments: CM met with patient to assess dc plans/needs. Patient states he lives at home with his . He reports he is independent with all ADL's & IADL's. He states he does not have home health services or use any assistive for mobility. Ad dc, he will return home with his . No needs identified or verbalized at this time. CM will follow & assist as needed. Business Development Director: Yumiko Champion
--- NOTE | 2016-10-14 15:00 | NUR ---
NO ACUTE CHANGES IN PT STATUS AT THIS TIME. PT ADEQUATELY SEDATED AT THIS TIME AND IS SHOWING NO SIGNS OF DISCOMFORT. VITAL SIGNS STABLE
--- NOTE | 2016-10-14 17:15 | NUR ---
PT ASSISTED TO BEDSIDE COMMODE FOR SMALL BM. MONTOYA CATHETER DC'D PER ORDER. PT HELPED BACK TO BED. PIV FLUSHED FOR PATENCY. VITAL SIGNS STABLE. WILL CONTINUE TO MONITOR
--- NOTE | 2016-10-14 19:20 | NUR ---
REPORT RECIEVED. ASSESSMENT COMPLETEPER FLOW SHEET. VSS. DENIES NEEDS. GIVEN WATER FOR COMFORT. WILL CONTINUE TO MONITOR
--- NOTE | 2016-10-14 21:00 | NUR ---
FAMILY AT BEDSIDE. VSS. NO NEW CHANGES. WILL CONTINUE TO MONITOR
--- NOTE | 2016-10-14 23:20 | NUR ---
ASSISTED UP TO BEDSIDE. 200 CC BANDAR VOID NOTED. WILL CONTINUE TO MONITOR
[2016-10-15] VITALS: BP 134/65
[2016-10-15 01:00] VITALS: BP 118/64
--- NOTE | 2016-10-15 01:12 | NUR ---
ASSISTED UP OOB 150 CC BANDAR URINE NOTED. NO NEW CHANGES
[2016-10-15 02:00] VITALS: BP 120/64
[2016-10-15 03:00] VITALS: BP 124/63
--- NOTE | 2016-10-15 03:43 | NUR ---
PT SLEEPING COMFORTABLY. VSS WILL CONTINUE TO MONITOR
[2016-10-15 05:21] LABS: BASOPHILS 0 % (0-2); EOSINOPHILS 0.4 % (0-7); HEMATOCRIT 37.6 % (42.0-54.0); HEMOGLOBIN 12.6 g/dL (13.5-17.5); IMMATURE GRANULOCYTES 0.1 % (0-5); LYMPHOCYTES 20.3 % (15-50); MCH 30.4 pg (26.0-34.0); MCHC 33.5 g/dL (31.0-37.0); MCV 90.8 fL (80.0-100.0); MEAN PLATELET VOLUME 10.2 fL (7.4-10.4); MONOCYTES 9.7 % (2-11); NEUTROPHILS 69.5 % (40-80); PLATELET COUNT 117 10x3/uL (130-400); RBC 4.14 10x6/uL (4.20-6.10); RDW 13.7 % (11.5-14.5); WBC 7.8 10x3/uL (4.8-10.8)
[2016-10-15 05:39] LABS: ALBUMIN 2.7 g/dL (3.4-5.0); ANION GAP 9.7 mmol/L (8-16); BILIRUBIN - TOTAL 0.97 mg/dL (0.2-1.3); CALCIUM 7.8 mg/dL (8.5-10.1); CARBON DIOXIDE 25.7 mmol/L (21.0-32.0); CREATININE - SERUM 1.4 mg/dL (0.6-1.3); POTASSIUM - SERUM 3.4 mmol/L (3.5-5.1)
--- NOTE | 2016-10-15 06:52 | NUR ---
PT UP IN CHAIR AMBULATED AROUND UNIT WITH WALKER 2 1/2 LAPS WITHOUT DIFFICULTY NO SOB OR WEAKNESS NOTED. COMPLETE BB LINEN CHANGE ADM. VSS WILL CONTINUE TO MONITOR
[2016-10-15 07:00] VITALS: BP 138/58
--- NOTE | 2016-10-15 07:56 | NUR ---
REPORT RECD PT CARE ASSUMED. PT IS ALERT, DISORIENTED TO TIME/SITUATION. S1S2 NOTED, SR PER CM. SEE SHIFT ASSESSMENT FOR FURTHER DETAIL. BREAKFAST TRAY PROVIDED. PT FEEDS SELF INDEPENDENTLY SITTING UP IN CHAIR. VSS
--- NOTE | 2016-10-15 08:45 | NUR ---
PT FINISHED WITH BREAKFAST. PT ASSISTED TO COMMODE, PT HAS BM. PT THEN ASSISTED TO BED, IN COMFORTABLE POSITION.
--- NOTE | 2016-10-15 10:03 | NUR ---
NUTRITION MONITORING & EVAL CHART REVIEWED. PT WITH 25% INTAKE AHA BREAKFAST. WILL CONTINUE TO PROVIDE DIET, MONITOR PO INTAKE. RD FOLLOWING
[2016-10-15 11:00] VITALS: BP 142/70
--- NOTE | 2016-10-15 12:05 | NUR ---
PT SITTING UP IN BED EATING LUNCH AT THIS TIME.
--- NOTE | 2016-10-15 13:01 | NUR ---
DISCHARGE INTRUCTIONS REVIEWED WITH PT. PT ASISSTED TO WHEELCHAIR AND D/C HOME WITH .
--- NOTE | 2016-10-15 17:22 | EEG ---
PATIENT:JOSE GATICA DATE OF SERVICE: 10/12/16 MEDICAL RECORD: [id number] DATE OF : 44 LOCATION:D.231 D.ICU ADMISSION DATE: 10/12/16 REFERRING PHYSICIAN: INTERPRETING PHYSICIAN: LEANA SCHAEFFER MD DATE OF SERVICE: 10/13/2016 Referred by myself as an inpatient, currently in room 2312. ELECTROENCEPHALOGRAM NUMBER: [id number]. DATE OF EXAMINATION: 10/13/2016 at 1:00 p.m. TECHNICAL DATA: This electroencephalographic recording consisted of approximately 20 minutes of data collection utilizing the international 10/20 system of electrode placement and both referential and non-referential montages. Sixteen channels of electrocerebral recording are accompanied by a 17th channel dedicated to the electrocardiographic rhythm and 2 channels of electromyographic recording. Recording is performed in the awake and drowsy states utilizing activation by photic stimulation. ELECTROENCEPHALOGRAPHIC DATA: The awake state comprises approximately 70% of the recorded electrocerebral activity. Electromyographic artifact is prominent and rapid eye movements are seen. The posterior dominant background consists of a symmetric semi-arrhythmic waxing and waning 6-7 Hz theta activity, which is suppressed by eye opening. Also seen is an intermittent irregular generalized and symmetric 2-3 Hz delta slowing, which occurs for periods of 1-2 seconds approximately once every 1-2 pages. The drowsy state comprises the remaining portion of the recorded electrocerebral activity. Electromyographic artifact is mildly diminished. Rapid eye movements are not seen. The posterior dominant background is relatively suppressed. Delta slowing is more prominent in stage I sleep. No focal slowing is identified. No epileptiform discharges are seen. Photic stimulation induces no abnormal change in the recorded electrocerebral activity. INTERPRETATION: 1. Intermittent slow, generalized (awake and drowsy). 2. Background slow. This electroencephalographic recording is indicative of a mild to moderate diffuse encephalopathy. TRANSINT:[id number] Voice Confirmation ID: [id number] DOCUMENT ID: [id number] ELECTROENCEPHALOGRAM REPORT [id number] GAVILEANA SHEFFIELD MD at 1722 CC: [id number] DICTATION DATE: 10/14/16 0812 COTTAGE MASTER: 10/14/16 2145 DIS IN 10/15/16 [id number] [place] [address]
[2016-10-19 17:11] LABS: EHRLICHIA CHAFF IGG Negative (Neg:<1:64); EHRLICHIA CHAFF IGM Negative (Neg:<1:20); HGE IGG TITER Negative (Neg:<1:64); HGE IGM TITER Negative (Neg:<1:20)
[2016-10-20 03:11] LABS: RMSF IGM 0.19 index (0.00-0.89)
[2016-10-20 15:23] LABS: F. TULARENSIS - IGG Negative (()); F. TULARENSIS - IGM Negative (())
--- NOTE | 2016-10-22 11:49 | OP ---
PATIENT NAME: JOSE GATICA MEDICAL RECORD: [id number] :44 LOCATION:[facility] D.2312 ADMISSION DATE:10/12/16 SURGEON: INDER GARCIA MD DATE OF OPERATION: 10/12/2016 PREOPERATIVE DIAGNOSES: 1. Dislodged urinary catheter. 2. Urinary retention. 3. Confusion. POSTOPERATIVE DIAGNOSES: 1. Dislodged urinary catheter. 2. Urinary retention. 3. Urethral stricture. 4. Confusion. PROCEDURE: Placement of 14-Maldivian Coude catheter at the bedside. SURGEON: Inder Garcia MD. SENIOR MEDICAL TRANSCRIPTIONIST: None. BLOOD LOSS: Minimal. ANESTHESIA: None. COMPLICATIONS: None. Dr. Enriquez is currently out of town. I have been asked to place a urinary catheter fairly urgently. The patient was in CV ICU. He has been transferred down to the regular ICU. The patient is confused. He reportedly had a Cobian catheter in place and he pulled it out last night while he was confused. The nurses attempted to place a new Cobian catheter and were unable to do so. OPERATIVE COURSE: A consent form was signed. I saw the patient at bedside. The entire procedure was performed in the presence of a nurse. The patient had to be restrained due to his combativeness. The penis and genitals were sterilely prepped and draped. A lubricant was injected up through the urethra. I attempted to place a standard 18-Maldivian Cobian catheter and met resistance almost immediately. I then tried to advance an 0.035 Glidewire up through the strictured area and the Glidewire came prolapsing back up on itself and exiting out through the urethra. A 14-Maldivian Coude catheter was then brought the bedside. While manipulating the penis, I was able to advance this well-lubricated Coude catheter up through the strictured area and into the bladder. There was the production of a dilute urine. The Coude catheter was inflated and attached to a urinary catheter reservoir. I will see the patient on a p.r.n. basis. TRANSINT:[id number] Voice Confirmation ID: [id number] DOCUMENT ID: [id number] OPERATIVE REPORT [id number] GAVIINDER BATISTA MD at 1149 CC: JOANIE VO MD [id number] DICTATION DATE: 10/12/16 1130 DIRECTOR EDUCATIONAL RADIO: 10/12/16 2640 DIS IN 10/15/[address] [facility] [address] [place] [address]
--- NOTE | 2016-10-27 14:03 | CN ---
PATIENT NAME:JOSE GATICA MEDICAL RECORD: [id number] : 44 LOCATION:[facility].2312 ADMIT DATE: 10/12/16 ACCOUNT: [id number] CONSULTING PHYSICIAN: ADAM PERALTA MD REFERRING PHYSICIAN: JOANIE VO MD DATE OF CONSULTATION: 10/12/2016 HISTORY OF PRESENT ILLNESS: Mr. Gatica is a 76-year-old gentleman, who was admitted with chest pain and the patient underwent cardiac catheterization yesterday, but since then, the patient is confused. He is unresponsive, running a fever of 103 and also having diarrhea. The patient is very confused. The history was taken mainly by talking to the nursing staff and reviewing the patient's note. The patient was admitted with nearly similar symptoms in March 2016. REVIEW OF SYSTEMS: Mainly in the history of present illness. The detail is not obtainable. PAST MEDICAL HISTORY: 1. History of cerebrovascular accident. 2. Chronic renal disease. 3. Dementia. 4. Hyperlipidemia. 5. Kidney stone. 6. Gastroesophageal reflux disease. 7. Chronic pharyngitis and dysphagia. 8. Hearing loss. 9. Osteoarthritis. ALLERGIES: There are no known drug allergies. PAST SURGICAL HISTORY: He has cholecystectomy. PRESENT MEDICATIONS: [employer]star[employer] was reviewed. PERSONAL AND SOCIAL HISTORY: The patient is an ex-smoker, drinking unknown. FAMILY HISTORY: Noncontributory. PHYSICAL EXAMINATION: GENERAL: Now, the patient is lying comfortably in bed. He opens his eyes by calling, but he is noncommunicative. VITAL SIGNS: The blood pressure is 154/75, pulse is 96, respiration is 18, temperature is T-max of 102.9 and SpO2 is 98% on room air. HEENT: Conjunctivae is pink. Sclerae is nonicteric. NECK: Supple. No JVD. CHEST: There is a left basilar crackle. No wheezing. HEART: Rhythm regular, normal sound, no murmur. ABDOMEN: Soft. Bowel sounds present. No hepatosplenomegaly. RECTAL: Deferred. EXTREMITIES: No cyanosis, no clubbing and no pedal edema. SKIN: Warm, normal turgor. CENTRAL NERVOUS SYSTEM: There is no obvious cranial abnormality. The patient is noncommunicative. CONSULT REPORT [id number] JOSE GTAICA CHEST RADIOGRAPH: There is atelectasis in the left lower lobe. OTHER LABORATORY DATA: CBC: WBC 14.7, hemoglobin 17, hematocrit 50 and platelet count is 441. Chemistry: Sodium is 137, potassium 4.9, BUN is 30 and creatinine is 2. Lactic acid level is 3.5. Bicarb is 19.7. IMPRESSION: 1. Acute febrile illness. The differential diagnosis includes possible UTI and possibly secondary to pneumonia, rule out sepsis. 2. Lactic acidosis consistent with septicemia. 3. Leukocytosis. 4. Diarrhea, rule out Clostridium difficile colitis. 5. Acute mental status changes, [id number], possible metabolic encephalopathy associated with sepsis. 6. Status post cerebrovascular accident. 7. Chronic kidney disease. 9. Urinary tract infection. RECOMMENDATION: 1. Continue the Levaquin and discontinue Rocephin and start him on cefepime. 2. Start him on bicarb drip. 3. Consult GI. Check stool for Clostridium difficile colitis. Follow up on the blood cultures. Dr. Sanchez, thank you for involving me in the care of Mr. Gatica. TRANSINT:[id number] Voice Confirmation ID: [id number] DOCUMENT ID: [id number] ADAM PERALTA MD at 1403 CC: [id number] DICTATION DATE: 10/12/16 1401 RUBBER GOODS INSPECTOR TESTER: 10/12/16 2212 DIS IN 10/15/16 [id number] [place] [address]
== END 2016-10-15 13:02 | disposition home or self-care (01) | DRG 871 ==
LOC: D.CVICU 10:56 → D.CATH 10:56 → D.CVICU 16:35 → D.CATH 10-12 10:18 → D.ICU 10-12 10:18
PROVIDERS: Internal Medicine Pulmonary Disease; Student in an Organized Health Care Education/Training Program; ADMIT Internal Medicine Interventional Cardiology
PROC: B2111ZZ Fluoroscopy of Multiple Coronary Arteries using Low Osmolar Contrast (ICD-10-PCS; 2016-10-11)
PROC: B2151ZZ Fluoroscopy of Left Heart using Low Osmolar Contrast (ICD-10-PCS; 2016-10-11)
PROC: 4A023N7 Measurement of Cardiac Sampling and Pressure, Left Heart, Percutaneous Approach (ICD-10-PCS; 2016-10-11)
PROC: 0T9B70Z Drainage of Bladder with Drainage Device, Via Natural or Artificial Opening (ICD-10-PCS; principal; 2016-10-12)
DX: A41.9 Sepsis, unspecified organism (principal); J18.9 Pneumonia, unspecified organism; G93.41 Metabolic encephalopathy; J98.11 Atelectasis; N17.9 Acute kidney failure, unspecified; N39.0 Urinary tract infection, site not specified; R07.9 Chest pain, unspecified; N35.9 Urethral stricture, unspecified; R19.7 Diarrhea, unspecified; N18.9 Chronic kidney disease, unspecified; Z86.73 Personal history of transient ischemic attack (TIA), and cerebral infarction without residual deficits; F03.90 Unspecified dementia, unspecified severity, without behavioral disturbance, psychotic disturbance, mood disturbance, and anxiety; K21.9 Gastro-esophageal reflux disease without esophagitis; M19.90 Unspecified osteoarthritis, unspecified site; Z87.891 Personal history of nicotine dependence; T83.028A Displacement of other urinary catheter, initial encounter; Y84.6 Urinary catheterization as the cause of abnormal reaction of the patient, or of later complication, without mention of misadventure at the time of the procedure

== ENCOUNTER → 2018-03-23 10:18 | Outpatient (CLI) | payer MEDICARE, OTHER ==
[2016-10-12 09:24] VITALS: BMI 24.8
[~2018-03-23 10:18] MED LIST changes: +BETAPACE 80 MG80 MG PO; +NEXIUM40 MG PO
== END | disposition home or self-care (01) ==
LOC: D.CT 03-20 09:00
DX: Z86.73 Personal history of transient ischemic attack (TIA), and cerebral infarction without residual deficits (principal)

== ENCOUNTER 2018-09-30 20:38 | Emergency (ER) | payer MEDICARE, OTHER ==
[~2018-09-30] VITALS: Ht 177.8 cm; Wt 81.8 kg
[2018-09-30 20:39] VITALS: Ht 177.8 cm; Wt 81.8 kg
[2018-09-30 21:01] LABS: BASOPHILS 0.2 % (0-2); EOSINOPHILS 2.5 % (0-7); HEMATOCRIT 40.7 % (42.0-54.0); HEMOGLOBIN 13.7 g/dL (13.5-17.5); IMMATURE GRANULOCYTES 0.2 % (0-5); LYMPHOCYTES 28.6 % (15-50); MCH 30.2 pg (26.0-34.0); MCHC 33.7 g/dL (31.0-37.0); MCV 89.8 fL (80.0-100.0); MEAN PLATELET VOLUME 9.7 fL (7.4-10.4); MONOCYTES 10.2 % (2-11); NEUTROPHILS 58.3 % (40-80); RBC 4.53 10x6/uL (4.20-6.10); RDW 13.5 % (11.5-14.5); WBC 5.3 10x3/uL (4.8-10.8)
[2018-09-30 21:02] LABS: PLATELET COUNT 153 10x3/uL (130-400)
[2018-09-30 21:02] LABS: APPEARANCE CLEAR (CLEAR); BILIRUBIN NEGATIVE (NEGATIVE); COLOR YELLOW (YELLOW); GLUCOSE NEGATIVE (NEGATIVE); KETONE NEGATIVE (NEGATIVE); NITRITE NEGATIVE (NEGATIVE); PROTEIN NEGATIVE (NEGATIVE); RED CELLS - URINE NONE SEEN /hpf (0-5); UROBILINOGEN NORMAL (NORMAL); WHITE CELLS - URINE 0-5 /hpf (0-5)
[2018-09-30 21:09] LABS: APTT 29.2 SECONDS (22.8-39.4); INR 1.12 (0.85-1.17); PROTIME 13.9 SECONDS (11.6-15.0)
[2018-09-30 21:19] LABS: ALBUMIN 3.4 g/dL (3.4-5.0); BILIRUBIN - TOTAL 0.26 mg/dL (0.2-1.3); CALCIUM 8.4 mg/dL (8.5-10.1); CARBON DIOXIDE 26.4 mmol/L (21.0-32.0); CREATININE - SERUM 2.1 mg/dL (0.6-1.3); POTASSIUM - SERUM 4.4 mmol/L (3.5-5.1); PROTEIN - SERUM 8.2 g/dL (6.4-8.2)
[2018-09-30 23:40] VITALS: BP 123/79
== END 2018-09-30 23:40 | disposition home or self-care (01) ==
LOC: D.ER 20:38
PROVIDERS: Family Medicine
DX: S02.2XXA Fracture of nasal bones, initial encounter for closed fracture (principal); W01.0XXA Fall on same level from slipping, tripping and stumbling without subsequent striking against object, initial encounter; Z86.73 Personal history of transient ischemic attack (TIA), and cerebral infarction without residual deficits; I48.91 Unspecified atrial fibrillation